=== PATIENT | male | born 1955 | race Caucasian/White ===

== ENCOUNTER 2018-10-25 20:35 | Inpatient (IN) ==
--- NOTE | 2018-10-25 20:41 | Emergency Department Note ---
Disposition Clinical Impression: Chest pain Qualifiers: Chest pain type: unspecified Qualified Code(s): R07.9 - Chest pain, unspecified Disposition: Admitted As Inpatient Condition: Fair [facility] Care Provider[facility] - Time of Disposition: 00:14 Chest Pain HPI - General Stated Complaint: Chest Pain Time Seen by Provider: 10/25/18 20:41 Source: patient, family Mode of arrival: ambulatory Limitations: no limitations Vital Signs Reviewed: Yes Nursing Notes Reviewed: Yes - History of Present Illness HPI Narrative: 63-year-old male no significant past medical history presenting for one day of severe midsternal chest pain which began approximately 12 AM last evening. Patient states that he has taken 3 oxycodone 500/fives since that time as well as nitroglycerin which have given him some relief of his pain. However patient states that very shortly after taken these medications his pain has returned and has been 10 out of 10 on the pain scale. Patient states that the pain has radiated from his midsternal region now covers the entire anterior aspect of his chest radiating into bilateral upper extremities neck and jaw. Patient notes that he feels that his teeth do not feel right, he notes that he is having num bness and paresthesias in the distal upper extremities, he noticed that he is lightheaded/dizzy as well as developing a severe headache. Patient denies radiation to his back, he has no lower extremity symptoms he does not have difficulty with ambulation he has had no falls or trauma or syncope. Patient denies abdominal pain nausea or vomiting, he has not had any fevers chills no abnormal bleeding, no other concerns or complaints at this time. Upon my initial evaluation, my general impression is that the patient appears uncomfortable due to his pain and is mildly dyspneic using accessory muscles of respiration with mild to moderate conversational dyspnea. He otherwise is awake, alert, oriented, engaged to conversation and answering questions appropriately. There are no overt lateralizing signs, the patient skin appears to be normal in color, they are not pale, not cyanotic, and not diaphoretic, they are sitting up in hospital bed interacting appropriately with environment. Pt complaint: chest pain Onset (ago): day(s) Duration: constant, gradually worsening Onset: during rest Pain Location: substernal Severity: severe Severity scale (1-10): 10 Quality: sharp Pain Radiation: RUE, LUE, neck, jaw/teeth Improves with: nitroglycerin, medication-other (Oxycodone) Associated symptoms: Reports: dyspnea Treatments prior to arrival chest pain: nitroglycerin, other (Oxycodone) - Related Data Home Medications Medication Instructions Recorded Confirmed Unable To Obtain [Unable to Obtain] 10/25/18 10/25/18 Allergies Allergy/AdvReac Type Severity Reaction Status Date / Time Penicillins Allergy See Verified 10/25/18 20:47 Comments Sulfa (Sulfonamide Allergy Headache Verified 10/25/18 20:49 Antibiotics) povidone-iodine AdvReac Rash Verified 10/25/18 20:49 [From Betadine] soap [From Betadine] AdvReac Rash Verified 10/25/18 20:49 tape AdvReac Rash Uncoded 10/25/18 20:49 Review of Systems: *See History of Present Illness for more detail Constitutional: Denies: fever, chills Cardiovascular: Admits: chest pain radiating into his bilateral upper extremities, neck/jaw and teeth Respiratory: Admits: dyspnea, denies: cough, hemoptysis Gastrointestinal: Denies: abdominal pain, nausea, vomiting, diarrhea, constipation, hematemesis, melena, hematochezia Genitourinary: Denies: hematuria Musculoskeletal: Admits to neck pain Denies: back pain, Neurological: Admits: headache, weakness, lightheadedness/dizziness, numbness, paresthesias, denies: difficulty with ambulation. Endocrine: Denies: fatigue All systems ED: reviewed and negative except as stated. Review of Systems: As Per HPI Physical Exam Constitutional: Patient appears to be in acute distress due to his pain he is otherwise [id number], engaged to conversation, speech is fluid, answers questions appropriately Neuro: GCS 15, no overt focal neurological deficits Head: Atraumatic, normocephalic Eyes: Pupils equal, round and reactive to light, no scleral icterus, no conjunctival injection Neck: Trachea midline without deviation. Anterior neck is supple without swelling. *Chest: Symmetric chest wall rise *Heart: Cardiac rate is tachycardic with a regular rhythm with S1 and S2 , no S3 or S4 appreciated, no murmurs, gallops, rubs, or clicks. *Lungs: Lungs are clear to auscultation bilaterally, there is accessory muscle use and prolonged expiratory phase. No wheezes, rhonchi or stridor appreciated. Abdomen: Abdomen is obese, soft to palpation, normal bowel sounds. No abdominal bruit auscultated. Non-distended, non-rigid, no organomegaly, no ascites appreciated. No pulsatile mass, no tenderness or guarding to palpation in all four quadrants, no rebound Extremities: Normal capillary refill without evidence of pedal edema, joint swelling or erythema. Pulses/motor intact in all 4 extremities. Psychiatric exam: Patient appears anxious Integumentary: warm, dry, intact, normal color. No rash, cyanosis, diaphoresis, erythema, or pallor - General Limitations: no limitations General appearance: alert, in distress Course Course Narrative: ED chest pain order set initiated with CTA dissection study ordered due to concerns of chest pain with neurological symptoms. Aspirin, nitroglycerin for the management of patient's symptoms. We will reassess frequently. My plan of care was discussed with patient and his bedside and they verbalized understanding and agreement with this plan. - Reevaluation(s) Reevaluation #1: A patient had elevated troponin at 0.38. We will perform repeat EKG at this time. Patient be heparinized after CT angiogram for cardiac prophylaxis. Patient required be admitted to hospitalist medicine service with cardiology consultation for further evaluation and management. Patient and his bedside verbalized their understanding and agreement with this plan. Time: 22:41 Vital Signs Temperature 97.9 F 10/25/18 20:49 Pulse Rate 79 10/25/18 20:49 Respiratory Rate 19 10/25/18 20:49 Blood Pressure 134/81 10/25/18 20:49 O2 Sat by Pulse Oximetry 98 10/25/18 20:49 Temperature 97.9 F 10/25/18 20:49 Pulse Rate 84 10/26/18 00:07 Respiratory Rate 18 10/26/18 00:07 Blood Pressure 128/76 10/26/18 00:07 O2 Sat by Pulse Oximetry 97 10/26/18 00:07 Oxygen Delivery Oxygen Delivery Room Air Chest Pain - MDM Narrative Medical decision making narrative: The patients CTA shows no sign of dissection or pulmonary embolism. Laboratory results are consistent for elevated troponin to 0.38. Heparinization was began in the ED. EKG has no acute ischemic change on initial or repeat evaluation. Otherwise negative workup. Evaluation results were discussed with the patient and their family member(s) at bedside. Patient was given time to ask questions and state concerns. The patient states that they have had significant relief of their symptoms with our management here in the ED. The patient will be admitted to the hospitalist medicine service for further evaluation and management of NSTEMI . The patient verbalizes their understanding and agreement with this plan and is hemodynamically stable at the time of admission. - Lab Data Lab results reviewed: Yes I reviewed the patient's lab results. Result diagrams: 10/25/18 20:55 10/25/18 20:55 Lab Results 10/25/18 10/25/18 10/25/18 Range/Units 20:55 20:55 20:55 WBC 8.9 (4.3-11.1) K/mcL RBC 5.49 (4.19-5.50) M/mcL Hgb 15.7 (12.9-16.9) g/dL Hct 47.7 (37.5-50.1) % MCV 86.9 (83.0-100.0) fL MCH 28.6 (28.0-33.3) pg MCHC 32.9 (31.6-35.5) g/dL RDW 13.8 (11.5-14.5) % Plt Count 297 (140-400) K/mcL MPV 9.7 (9.4-12.4) fL Immature Gran % 0.7 (0-4) % Seg Neutrophils % 52.9 % Lymphocytes % 33.7 % Monocytes % 9.8 % Eosinophils % 2.1 % Basophils % 0.8 % Neutrophils # 4.7 (1.6-8.9) K/mcL Lymphocytes # 3.0 (0.6-4.6) K/mcL Monocytes # 0.9 (0.0-1.3) K/mcL Eosinophils # 0.2 (0.0-0.6) K/mcL Basophils # 0.1 (0.0-0.2) K/mcL PT 11.2 (9.4-12.1) Seconds INR 1.0 APTT 47.5 H (26.0-36.0) Seconds Sodium 137 (136-145) mEq/L Potassium 3.9 (3.5-5.1) mEq/L Chloride 104 (98-107) mEq/L Carbon Dioxide 24 (23-29) mEq/L BUN 12 (8-23) mg/dL Creatinine 0.93 (0.70-1.30) mg/dL Est GFR ( Amer) > 60 (> 60) Est GFR (Non-Af Amer) > 60 (> 60) BUN/Creatinine Ratio 13 (6-26) Glucose 142 H (70-105) mg/dL Calculated Osmolality 286 (280-300) Calcium 9.6 (8.6-10.3) mg/dL Total Bilirubin 0.3 (0.3-1.0) mg/dL Direct Bilirubin 0.1 (0.0-0.2) mg/dL Indirect Bilirubin 0.2 (0.0-1.2) mg/dL AST 15 (13-39) Units/L ALT 15 (7-52) Units/L Alkaline Phosphatase 78 (34-104) Units/L Troponin I 0.38 H* (< 0.04) ng/mL Serum Total Protein 7.3 (6.4-8.9) g/dL Albumin 4.4 (3.5-5.7) g/dL Globulin 2.9 (2.4-3.5) g/dL Albumin/Globulin Ratio 1.5 (1.1-2.2) Lipase (11-82) Units/L 10/25/18 Range/Units 20:55 WBC (4.3-11.1) K/mcL RBC (4.19-5.50) M/mcL Hgb (12.9-16.9) g/dL Hct (37.5-50.1) % MCV (83.0-100.0) fL MCH (28.0-33.3) pg MCHC (31.6-35.5) g/dL RDW (11.5-14.5) % Plt Count (140-400) K/mcL MPV (9.4-12.4) fL Immature Gran % (0-4) % Seg Neutrophils % % Lymphocytes % % Monocytes % % Eosinophils % % Basophils % % Neutrophils # (1.6-8.9) K/mcL Lymphocytes # (0.6-4.6) K/mcL Monocytes # (0.0-1.3) K/mcL Eosinophils # (0.0-0.6) K/mcL Basophils # (0.0-0.2) K/mcL PT (9.4-12.1) Seconds INR APTT (26.0-36.0) Seconds Sodium (136-145) mEq/L Potassium (3.5-5.1) mEq/L Chloride (98-107) mEq/L Carbon Dioxide (23-29) mEq/L BUN (8-23) mg/dL Creatinine (0.70-1.30) mg/dL Est GFR ( Amer) (> 60) Est GFR (Non-Af Amer) (> 60) BUN/Creatinine Ratio (6-26) Glucose (70-105) mg/dL Calculated Osmolality (280-300) Calcium (8.6-10.3) mg/dL Total Bilirubin (0.3-1.0) mg/dL Direct Bilirubin (0.0-0.2) mg/dL Indirect Bilirubin (0.0-1.2) mg/dL AST (13-39) Units/L ALT (7-52) Units/L Alkaline Phosphatase (34-104) Units/L Troponin I (< 0.04) ng/mL Serum Total Protein (6.4-8.9) g/dL Albumin (3.5-5.7) g/dL Globulin (2.4-3.5) g/dL Albumin/Globulin Ratio (1.1-2.2) Lipase 63 (11-82) Units/L - Radiology Data Radiology results reviewed: Yes I reviewed the patient's radiology results. CT Dissection 10/25/18 20:51 IMPRESSION: 1. No aortic dissection or other acute abnormality in the chest, abdomen, or pelvis. 2. Mild coronary artery atherosclerotic vascular calcifications. 3. 2 mm nodule in the left lung apex. See recommendations below. 4. Diffuse hepatic steatosis. RECOMMENDATIONS: Fleischner Society guidelines for follow-up and management of incidentally detected pulmonary nodules: Single Solid Nodule: Nodule size less than 6 mm In a low-risk patient, no routine follow-up. In a high-risk patient, optional CT at 12 months. - Low risk patients include individuals with minimal or absent history of smoking and other known risk factors. - High risk patients include individuals with a history or smoking or known risk factors. Radiology 2017 http://pubs.rsna.org/doi/full/10.1148/radiol.[email or web address] D/ :09:40 / Ghassan Hahn MD / Ghassan Hahn MD Interpreting Provider: Ghassan Hahn MD - EKG Data EKG attestation: Yes I reviewed and interpreted this EKG. EKG results narrative: The patients EKG shows a sinus rhythm with a nonspecific intraventricular conduction delay at a rate of 83 beats per minute, CO interval of 188 milliseconds, a QRS duration of 113 milliseconds, a QT/QTc interval of 391 / 460 milliseconds respectively. There are no significant ST segment elevations, depressions, pathologic Q waves, abnormal T-wave inversions, nor any other signs of acute ischemic change. At this time there is no prior EKG available for comparison. Heart Score - Score History: Highly Suspicious EKG: Non Specific repolarisation Disturbance Age: 45-65 Risk Factors: 1-2 risk factors Troponin: Less than normal limit HEART Score Total: 5
[2018-10-25] MEDS ORDERED: Nitroglycerin 0.4 MG TAB.SUBL SL PRN (20:50)
[2018-10-25] MEDS ORDERED: Aspirin 81 MG TAB.CHEW PO ONE (20:50)
[2018-10-25] MEDS ORDERED: Isovue-370 500 ML BOTTLE IVP ONE (20:51)
[2018-10-25 21:38] LABS: Basophils # 0.1 K/mcL (0.0-0.2); Basophils % 0.8 %; Eosinophils # 0.2 K/mcL (0.0-0.6); Eosinophils % 2.1 %; Hematocrit 47.7 % (37.5-50.1); Hemoglobin 15.7 g/dL (12.9-16.9); Immature Granulocytes % 0.7 % (0-4); Lymphocytes % 33.7 %; Mean Corpuscular HGB Conc 32.9 g/dL (31.6-35.5); Mean Corpuscular Hemoglobin 28.6 pg (28.0-33.3); Mean Corpuscular Volume 86.9 fL (83.0-100.0); Mean Platelet Volume 9.7 fL (9.4-12.4); Monocytes # 0.9 K/mcL (0.0-1.3); Monocytes % 9.8 %; Neutrophils # 4.7 K/mcL (1.6-8.9); Platelet Count 297 K/mcL (140-400); Red Blood Count 5.49 M/mcL (4.19-5.50); Red Cell Distribution Width 13.8 % (11.5-14.5); Segmented Neutrophils % 52.9 %; White Blood Count 8.9 K/mcL (4.3-11.1)
[2018-10-25 21:45] LABS: Prothrombin Time 11.2 Seconds (9.4-12.1)
[2018-10-25 21:47] LABS: Activated Partial Thrombo Time 47.5 Seconds (26.0-36.0)
[2018-10-25 21:57] LABS: Alanine Aminotransferase 15 Units/L (7-52); Albumin 4.4 g/dL (3.5-5.7); Albumin/Globulin Ratio 1.5 (1.1-2.2); Alkaline Phosphatase 78 Units/L (34-104); Aspartate Amino Transferase 15 Units/L (13-39); BUN/Creatinine Ratio 13 (6-26); Bilirubin,Direct 0.1 mg/dL (0.0-0.2); Bilirubin,Indirect 0.2 mg/dL (0.0-1.2); Bilirubin,Total 0.3 mg/dL (0.3-1.0); Blood Urea Nitrogen 12 mg/dL (8-23); Calcium 9.6 mg/dL (8.6-10.3); Carbon Dioxide 24 mEq/L (23-29); Chloride 104 mEq/L (98-107); Globulin 2.9 g/dL (2.4-3.5); Glucose 142 mg/dL (70-105); Osmolality,Calculated 286 (280-300); Potassium 3.9 mEq/L (3.5-5.1); Sodium 137 mEq/L (136-145); Total Protein 7.3 g/dL (6.4-8.9); eGFR For African Americans > 60 (> 60); eGFR For Non-African Americans > 60 (> 60)
[2018-10-25 22:31] LABS: Troponin I 0.38 ng/mL (< 0.04)
--- NOTE | 2018-10-25 22:48 | Emergency Department Note ---
Disposition Clinical Impression: NSTEMI (non-ST elevated myocardial infarction) Chest pain Qualifiers: Chest pain type: unspecified Qualified Code(s): R07.9 - Chest pain, unspecified Disposition: Admitted As Inpatient Condition: Fair [facility] [Primary Care Provider[facility] - Time of Disposition: 00:05 General Adult HPI - General Chief complaint: ED Chest Pain Stated complaint: Chest Pain Time Seen by Provider: 10/25/18 20:41 Source: patient, family Mode of arrival: ambulatory Limitations: no limitations Nursing Notes Reviewed: Yes Vital Signs Reviewed: Yes - History of Present Illness Pain Scale: 4 - Related Data Home Medications Medication Instructions Recorded Confirmed Unable To Obtain [Unable to Obtain] 10/25/18 10/25/18 Allergies Allergy/AdvReac Type Severity Reaction Status Date / Time Penicillins Allergy See Verified 10/25/18 20:47 Comments Sulfa (Sulfonamide Allergy Headache Verified 10/25/18 20:49 Antibiotics) povidone-iodine AdvReac Rash Verified 10/25/18 20:49 [From Betadine] soap [From Betadine] AdvReac Rash Verified 10/25/18 20:49 tape AdvReac Rash Uncoded 10/25/18 20:49 Past Medical History - Past Medical History Medical history: Reports: GERD, hyperlipidemia Psychiatric history: Reports: panic disorder - Social History Smoking Status: Current every day smoker Alcohol use: Reports: none Drug use: Reports: none Physical Exam - General Limitations: no limitations General appearance: alert, in distress Course Vital Signs Temperature 97.9 F 10/25/18 20:49 Pulse Rate 79 10/25/18 20:49 Respiratory Rate 19 10/25/18 20:49 Blood Pressure 134/81 10/25/18 20:49 O2 Sat by Pulse Oximetry 98 10/25/18 20:49 Temperature 97.9 F 10/25/18 20:49 Pulse Rate 84 10/26/18 00:07 Respiratory Rate 18 10/26/18 00:07 Blood Pressure 128/76 10/26/18 00:07 O2 Sat by Pulse Oximetry 97 10/26/18 00:07 Oxygen Delivery Oxygen Delivery Room Air Medical Decision Making - Lab Data Lab results reviewed: Yes I reviewed the patient's lab results. Result diagrams: 10/25/18 20:55 10/25/18 20:55 Lab Results 10/25/18 10/25/1819 Range/Units 20:55 20:55 20:55 WBC 8.9 (4.3-11.1) K/mcL RBC 5.49 (4.19-5.50) M/mcL Hgb 15.7 (12.9-16.9) g/dL Hct 47.7 (37.5-50.1) % MCV 86.9 (83.0-100.0) fL MCH 28.6 (28.0-33.3) pg MCHC 32.9 (31.6-35.5) g/dL RDW 13.8 (11.5-14.5) % Plt Count 297 (140-400) K/mcL MPV 9.7 (9.4-12.4) fL Immature Gran % 0.7 (0-4) % Seg Neutrophils % 52.9 % Lymphocytes % 33.7 % Monocytes % 9.8 % Eosinophils % 2.1 % Basophils % 0.8 % Neutrophils # 4.7 (1.6-8.9) K/mcL Lymphocytes # 3.0 (0.6-4.6) K/mcL Monocytes # 0.9 (0.0-1.3) K/mcL Eosinophils # 0.2 (0.0-0.6) K/mcL Basophils # 0.1 (0.0-0.2) K/mcL PT 11.2 (9.4-12.1) Seconds INR 1.0 APTT 47.5 H (26.0-36.0) Seconds Sodium 137 (136-145) mEq/L Potassium 3.9 (3.5-5.1) mEq/L Chloride 104 (98-107) mEq/L Carbon Dioxide 24 (23-29) mEq/L BUN 12 (8-23) mg/dL Creatinine 0.93 (0.70-1.30) mg/dL Est GFR ( Amer) > 60 (> 60) Est GFR (Non-Af Amer) > 60 (> 60) BUN/Creatinine Ratio 13 (6-26) Glucose 142 H (70-105) mg/dL Calculated Osmolality 286 (280-300) Calcium 9.6 (8.6-10.3) mg/dL Total Bilirubin 0.3 (0.3-1.0) mg/dL Direct Bilirubin 0.1 (0.0-0.2) mg/dL Indirect Bilirubin 0.2 (0.0-1.2) mg/dL AST 15 (13-39) Units/L ALT 15 (7-52) Units/L Alkaline Phosphatase 78 (34-104) Units/L Troponin I 0.38 H* (< 0.04) ng/mL Serum Total Protein 7.3 (6.4-8.9) g/dL Albumin 4.4 (3.5-5.7) g/dL Globulin 2.9 (2.4-3.5) g/dL Albumin/Globulin Ratio 1.5 (1.1-2.2) Lipase (11-82) Units/L 10/25/18 Range/Units 20:55 WBC (4.3-11.1) K/mcL RBC (4.19-5.50) M/mcL Hgb (12.9-16.9) g/dL Hct (37.5-50.1) % MCV (83.0-100.0) fL MCH (28.0-33.3) pg MCHC (31.6-35.5) g/dL RDW (11.5-14.5) % Plt Count (140-400) K/mcL MPV (9.4-12.4) fL Immature Gran % (0-4) % Seg Neutrophils % % Lymphocytes % % Monocytes % % Eosinophils % % Basophils % % Neutrophils # (1.6-8.9) K/mcL Lymphocytes # (0.6-4.6) K/mcL Monocytes # (0.0-1.3) K/mcL Eosinophils # (0.0-0.6) K/mcL Basophils # (0.0-0.2) K/mcL PT (9.4-12.1) Seconds INR APTT (26.0-36.0) Seconds Sodium (136-145) mEq/L Potassium (3.5-5.1) mEq/L Chloride (98-107) mEq/L Carbon Dioxide (23-29) mEq/L BUN (8-23) mg/dL Creatinine (0.70-1.30) mg/dL Est GFR ( Amer) (> 60) Est GFR (Non-Af Amer) (> 60) BUN/Creatinine Ratio (6-26) Glucose (70-105) mg/dL Calculated Osmolality (280-300) Calcium (8.6-10.3) mg/dL Total Bilirubin (0.3-1.0) mg/dL Direct Bilirubin (0.0-0.2) mg/dL Indirect Bilirubin (0.0-1.2) mg/dL AST (13-39) Units/L ALT (7-52) Units/L Alkaline Phosphatase (34-104) Units/L Troponin I (< 0.04) ng/mL Serum Total Protein (6.4-8.9) g/dL Albumin (3.5-5.7) g/dL Globulin (2.4-3.5) g/dL Albumin/Globulin Ratio (1.1-2.2) Lipase 63 (11-82) Units/L - Radiology Data Radiology results reviewed: Yes I reviewed the patient's radiology results. - EKG Data EKG #1 EKG attestation: Yes I reviewed and interpreted this EKG. EKG results narrative: 20:46 EKG shows a normal sinus rhythm with ventricular rate of 83. No significant ST segment elevation or depression. No arrhythmia or ectopy. EKG #2 EKG attestation: Yes I reviewed and interpreted this EKG. EKG results narrative: 20:46 EKG shows a normal sinus rhythm with ventricular rate of 83. No significant ST segment elevation or depression. No arrhythmia or ectopy. Critical Care Time Critical Care Time: Yes Total Critical Care Time: 45 Attestation: Critical care performed: Time is exclusive of separately billable procedures. Time includes: direct patient care, patient reassessment, coordination of patient care, interpretation of data (laboratory data, radiology data, and respiratory data), review of patient's medical records, medical consultation and documentation of patient c are. Procedures included in critical care time: Procedures excluded from critical care time: Attestation Statement - Attestation Attestation: I, Fabian Blanca MD, personally evaluated this patient and discussed their management with the resident physician. I reviewed the resident's note and agree with the documented findings, medical decision making, and plan of care. I reviewed the residents documentation and agree with the residents assessment and plan of care. I have personally had face to face time with the patient. I personally supervised and was present for the rodriguez/critical portions of the following procedures completed by the resident: EKG interpretation. 63-year-old male presents to the emergency department with a complaint of severe substernal chest pain since midnight last night. He describes it as a pressure, like a 500 pound weight on his chest. He has had some shortness of breath. No diaphoresis directly associated with the pain but he states he has recently been having episodes of diaphoresis with exertion. He does have a history of coronary artery disease and had a balloon angioplasty in the past. No stents. No nausea or vomiting with the pain. It does radiate up into his neck and jaws as well as to the shoulders and upper arms bilaterally. On examination patient is a well-developed obese male in no acute distress. He is alert and oriented 3. There is no cyanosis or diaphoresis. Chest is nontender to palpation. Breath sounds are clear and equal bilaterally. Heart regular rate and rhythm. Abdomen soft and nontender with normal bowel sounds. Labs reviewed. Troponin 0.38. 20:46 EKG shows a normal sinus rhythm with ventricular rate of 83. No significant ST segment elevation or depression. No arrhythmia or ectopy. 22:4 5 repeat EKG shows a normal sinus rhythm with ventricular rate of 82. No significant ST segment elevation or depression. No arrhythmia or ectopy. No significant change from initial EKG. CTA dissection study showed no evidence of dissection or other acute abnormality in the chest abdomen or pelvis. It did show some coronary artery calcifications. Patient was started on heparin infusion for NSTEMI. The hospitalist,, Dr. Linares, was consulted and accepted admission of the [facility].
[2018-10-25] MEDS ORDERED: *HR* Heparin 5,000 UNIT/ML VIAL IVP ONE (23:39)
[2018-10-25] MEDS ORDERED: *HR* Heparin 5,000 UNIT/ML VIAL IVP PRN ×2 (23:39)
[2018-10-25] MEDS ORDERED: Heparin 25,000 UNIT/250 ML D5W 25,000 UNIT/250 ML IV.SOLN IVC SCH (23:45)
[2018-10-26] MEDS ORDERED: Mag Hydrox/Al Hydrox/Simeth 30 ML UDC PO PRN (01:24)
[2018-10-26] MEDS ORDERED: *HR* OxyCODONE Immed Rel 5 MG TABLET PO PRN (01:24)
[2018-10-26] MEDS ORDERED: traMADol 50 MG TABLET PO PRN (01:24)
[2018-10-26] MEDS ORDERED: Acetaminophen 325 MG TABLET PO PRN (01:24)
--- NOTE | 2018-10-26 01:26 | Internal Med History&Physical ---
Date of Encounter: 10/26/18 Time of Encounter: 01:25 Internal Medicine - H&P: HPI Chief complaint: Chest pain Admitted From: Home Plans for Post Hospital Care: Home History of present illness: Alvin Blanca is a 63-year-old man with coronary artery disease who says he has underwent 2 cardiac catheterizations in the past, the first one with balloon angioplasty performed and the second one with no intervention performed. He reports chronic shortness of breath with mild exertion and says that he has been having intermittent chest pains over the past number of weeks. One night ago he felt severe chest pain that awakened him from his sleep around 2 AM for which reason he took one tablet of oxycodone. It recurred about 3 hours later and he took another 2 tablets of oxycodone in addition to nitroglycerin. The day the chest pain was on and off with exertion and this evening it persisted and became more severe in intensity. He describes it as a 500 pound weight on his chest localizing it to the midsternal region accompanied by shortness of breath and nausea. He denies fever, chills or productive cough. In the ER he was found hemodynamically stable and EKG showed normal sinus rhythm. Blood work revealed a troponin of 0.387 he was started on heparin drip after receiving loading dose of aspirin. He currently rates his chest discomfort had a 2/10 and says he feels more comfortable. Vitals: Reviewed General: Well-developed obese white man lying comfortably in bed in no acute distress. Skin: Flushed, warm, dry. HEENT: Moist mucous membranes. No conjunctivae pallor. Neck: No lymphadenopathy. No JVD. No carotid bruits. No palpable thyroid. Chest: Normal thoracic expansion. Normal breath sounds. Clear to auscultation. Heart: Normal S1 & S2; rhythmic. No rubs or murmurs. Abdomen: Non-distended, soft and non-tender to palpation. No peritoneal reaction. Extremities: No clubbing, cyanosis or edema. No calf tenderness. Normal distal pulses. Neurological: Awake, alert and oriented to person, place and time. No focal deficits. Psych: Affect appropriate. Assessment/Plan 1. NSTEMI: As evidenced by the patients worsening unstable angina with an elevated troponin but no acute electrocardiographic signs of coronary ischemia. He has underlying CAD. Will continue monitoring him on telemetry, repeat EKG if chest pain recurs, trend troponins and keep NPO in the interim pending c ardiology evaluation as he may require cardiac catheterization. Start low dose aspirin, high intensity statin and beta juaquin. Get an echo and BNP to assess for ischemic cardiomyopathy given his increasing dyspnea with minimal exertion. 2. Obesity: Counseled and educated on therapeutic lifestyle changes for weight loss as it will be of benefit in controlling comorbidities. [employer] Biology Teacher evaluation advised. 3. Tobacco use disorder: 5 minutes were spent counseling and educating the patient on this habit. office services manager and resources were made available. 4. GERD: Antacids as needed. Past Med Surg Social Fam HX - Past Medical History Medical history: GERD, hyperlipidemia Psychiatric history: panic disorder - Social History Smoking Status: Current every day smoker Alcohol use: none Drug use: none Internal Medicine - H&P: Meds Unable To Obtain [Unable to Obtain] 10/25/18 [History] Allergy/AdvReac Type Severity Reaction Status Date / Time Penicillins Allergy See Verified 10/25/18 20:47 Comments Sulfa (Sulfonamide Allergy Headache Verified 10/25/18 20:49 Antibiotics) povidone-iodine AdvReac Rash Verified 10/25/18 20:49 [From Betadine] soap [From Betadine] AdvReac Rash Verified 10/25/18 20:49 tape AdvReac Rash Uncoded 10/25/18 20:49 All Systems PM: A 10-system review of systems was performed and is negative for pertinent findings except as documented above in the HPI. Family history reviewed and found non-contributory. - Constitutional Vitals: Temp Pulse Resp BP Pulse Ox 97.9 F 84 18 128/76 97 10/25/18 20:49 10/26/18 00:07 10/26/18 00:07 10/26/18 00:07 10/26/18 00:07 Exam: . Internal Med - H&P Results - Labs CBC & Chem 7: 10/25/18 20:55 10/25/18 20:55 Labs: Short CBC 10/25/18 Range/Units 20:55 WBC 8.9 (4.3-11.1) K/mcL Hgb 15.7 (12.9-16.9) g/dL Hct 47.7 (37.5-50.1) % Plt Count 297 (140-400) K/mcL Neutrophils # 4.7 (1.6-8.9) K/mcL BMP 10/25/18 20:55 Sodium 137 Potassium 3.9 Chloride 104 Carbon Dioxide 24 BUN 12 Creatinine 0.93 Glucose 142 H Calcium 9.6 Cardiac Enzymes 10/25/18 Range/Units 20:55 Troponin I 0.38 H* (< 0.04) ng/mL Liver Function 10/25/18 Range/Units 20:55 Total Bilirubin 0.3 (0.3-1.0) mg/dL Direct Bilirubin 0.1 (0.0-0.2) mg/dL AST 15 (13-39) Units/L ALT 15 (7-52) Units/L Alkaline Phosphatase 78 (34-104) Units/L Albumin 4.4 (3.5-5.7) g/dL - Impressions ITS Impressions CT Dissection 10/25/18 20:51 IMPRESSION: 1. No aortic dissection or other acute abnormality in the chest, abdomen, or pelvis. 2. Mild coronary artery atherosclerotic vascular calcifications. 3. 2 mm nodule in the left lung apex. See recommendations below. 4. Diffuse hepatic steatosis. RECOMMENDATIONS: Fleischner Society guidelines for follow-up and management of incidentally detected pulmonary nodules: Single Solid Nodule: Nodule size less than 6 mm In a low-risk patient, no routine follow-up. In a high-risk patient, optional CT at 12 months. - Low risk patients include individuals with minimal or absent history of smoking and other known risk factors. - High risk patients include individuals with a history or smoking or known risk factors. Radiology 2017 http://pubs.rsna.org/doi/full/10.1148/radiol.[email or web address] D/ / Ghassan Hahn MD / Ghassan Hahn MD Interpreting Provider: Ghassan Hahn MD - Time Spent With Patient Total time spent is greater than 50% in coordination of care (as documented) at patient's floor/unit and/or counseling patient:
[2018-10-26 05:31] LABS: Estimated Average Glucose 128 mg/dl
[2018-10-26 05:39] LABS: Chol/HDL Ratio 4.2 (0-4.9)
[2018-10-26 05:53] LABS: Thyroid Stimulating Hormone 1.104 mcIU/mL (0.340-5.600)
[2018-10-26] MEDS: Aspirin 81 MG TAB.CHEW PO SCH (07:48)
--- NOTE | 2018-10-26 08:44 | Cardiology Consult Note ---
<Marlyn Donaldson - Last Filed: 10/26/18 08:44> Date of Encounter: 10/26/18 Time of Encounter: 08:00 Assessment and Plan (1) NSTEMI (non-ST elevated myocardial infarction) Current Visit: Yes Status: Acute Patient presented with typical chest pain symptoms. Troponin 0.38-->2.23. No acute ischemic ECG changes present. Reports 2/10 neck/chest pressure upon exam. Continue heparin gtt per ACS protocol, asa, statin, and BB. TTE pending. Cardiac rehab. Recommend LHC with possible PCI; A/R/B discussed, he is agreeable to proceed. Further recommendations to follow. (2) Tobacco abuse Current Visit: Yes Status: Acute Smoking cessation counseling provided. Reports 1 ppd x40+ years. (3) CAD (coronary artery disease) Current Visit: Yes Status: Chronic Reports hx of LHC 6-8 years ago, reports PTCA only of 65% lesion. to bring in list of home medications. Asa, statin, and BB. Plan as above. Qualifiers: Coronary Disease-Associated Artery/Lesion type: [place] artery [place] vs. transplanted heart: [place] heart Associated angina: with unstable angina Qualified Code(s): I25.110 - Atherosclerotic heart disease of [place] coronary artery with unstable angina pectoris Discussion w patient/family: The assessment and plan as outlined above was discussed with the patient and/or family members who expressed understanding and agreement. All questions were answered. Thank you for involving us in the care of your patient. Please call with any questions. The patient will be discussed and reviewed with Dr. Orourke; changes to be made accordingly. History of Present Illness Consult date: 10/26/18 Requesting physician: Dakota Izaguirre Consult reason: NSTEMI Chief complaint: Chest pain History of present illness: Mr. Blanca is a 63 year old male with PMHx significant of HTN, CAD s/p prior PTCA, and tobacco use who presented to the ED with recurrent chest pain. He reports discomfort started x2 nights ago; discomfort described as pressure/heaviness "500 lb weight on my chest" that radiates across chest and into neck. Associated symptoms include dyspnea, fatigue, and diaphoresis that have been worsening over the past several months. He reports he recently underwent stress test at the NH 2 months ago, was reportedly normal. Describes x2 prior LHC, reports x2 65% blockages around 6-8 years ago (Hospital in [place], [place]), underwent balloon angioplasty of 1 blockage only. Upon exam, he describes 2/10 neck pressure. He is on a heparin gtt. Past Med Surg Social Fam HX - Past Medical History Attestation: Yes The following information was validated with the patient. Source: patient Medical history: coronary artery disease, GERD, hyperlipidemia Psychiatric history: panic disorder - Past Surgical History Surgical History: angioplasty/stent - Social History Smoking Status: Current every day smoker Packs per day: 1 Alcohol use: none Drug use: none - Family History Mother Living Status: Cause of : lung cancer Hx Family Cancer: Yes (lung) Sister Living Status: Cause of : unknown Father Living Status: Cause of : [place] Hx Family Cardiac Disorders: Yes (CAD, [place]) Medications and Allergies Albuterol Sulfate [Proair Hfa] 1 puff IH Q4H PRN 10/26/18 [History] Cholecalciferol (D-3) [Vitamin D] 1,000 unit PO DAILY 10/26/18 [History] Gemfibrozil 600 mg PO BID 10/26/18 [History] Lidocaine 1 appl TP 2XW PRN 10/26/18 [History] Metoprolol [Lopressor] 25 mg PO BID 10/26/18 [History] Nitroglycerin [Nitrostat] 0.4 mg SL Q5M PRN 10/26/18 [History] Omeprazole [PriLOSEC] 20 mg PO BID 10/26/18 [History] PARoxetine HCl [Paroxetine HCl] 20 mg PO DAILY 10/26/18 [History] Tiotropium [place] [Spiriva Respimat] 2 puff IH QAM 10/26/18 [History] buPROPion HCl [Zyban] 300 mg PO DAILY 10/26/18 [History] hydrOXYzine HCl [Hydroxyzine HCl] 25 mg PO HS 10/26/18 [History] Allergy/AdvReac Type Severity Reaction Status Date / Time Penicillins Allergy See Verified 10/25/18 20:47 Comments Sulfa (Sulfonamide Allergy Headache Verified 10/25/18 20:49 Antibiotics) povidone-iodine AdvReac Rash Verified 10/25/18 20:49 [From Betadine] soap [From Betadine] AdvReac Rash Verified 10/25/18 20:49 tape AdvReac Rash Uncoded 10/25/18 20:49 All Systems Review: The remainder of the systems were reviewed and are negative - Cardiovascular Cardiovascular: as per HPI Physical Examination Vital Signs, Last 4 Hours Temp Pulse Resp BP Pulse Ox 10/26/18 07:31 98.0 F 83 17 118/63 96 General: Conversant, No Apparent Distress HEENT: Atraumatic, Normocephaly, Mucus Membranes Moist Cardiac: Reg Rate and Rhythm, Normal S1 and S2 Lungs: Normal Breath Sounds Neuro: Alert and responsive Abdomen: Soft Skin: No rashes noted on visualized skin Musculoskeletal: No Chest Wall Tenderness Extremities: No Edema, Normal Pulses Results 10/25/18 20:55 10/25/18 20:55 Lab Results 10/25/18 10/25/18 10/25/18 20:55 20:55 20:55 WBC 8.9 Hgb 15.7 Hct 47.7 Plt Count 297 INR 1.0 APTT 47.5 H Sodium 137 Potassium 3.9 Chloride 104 Carbon Dioxide 24 BUN 12 Creatinine 0.93 Glucose 142 H Calcium 9.6 Total Bilirubin 0.3 AST 15 ALT 15 Alkaline Phosphatase 78 Troponin I 0.38 H* B-Natriuretic Peptide Lipase TSH 10/25/18 10/26/18 10/26/18 20:55 03:19 03:19 WBC Hgb Hct Plt Count INR APTT Sodium Potassium Chloride Carbon Dioxide BUN Creatinine Glucose Calcium Total Bilirubin AST ALT Alkaline Phosphatase Troponin I 2.23 H* B-Natriuretic Peptide 75 Lipase 63 TSH 10/26/18 03:19 WBC Hgb Hct Plt Count INR APTT Sodium Potassium Chloride Carbon Dioxide BUN Creatinine Glucose Calcium Total Bilirubin AST ALT Alkaline Phosphatase Troponin I B-Natriuretic Peptide Lipase TSH 1.104 Active Medications Acetaminophen (Tylenol) 650 mg PO Q6HR PRN PRN Reason: Mild Pain/Fever Stop: 04/27/19 01:25 Al Hydrox/Mg Hydrox/Simethicone (Maalox) 30 ml PO Q4H PRN; Protocol PRN Reason: Dyspepsia Stop: 04/27/19 01:25 Aspirin (Aspirin) 81 mg PO DAILY [facility] Stop: 04/27/19 09:01 Last Admin: 10/26/18 07:48 Dose: 81 mg Documented by: Atorvastatin Calcium (Lipitor) 40 mg PO HS [facility] Stop: 04/27/19 21:01 Heparin Sodium (Porcine) (Heparin) 4,000 unit IVP Q6HR PRN PRN Reason: SEE COMMENTS Stop: 04/26/19 23:40 Last Admin: 10/26/18 06:49 Dose: 4,000 unit Documented by: Heparin Sodium (Porcine) (Heparin) 2,000 unit IVP Q6H PRN PRN Reason: SEE COMMENTS Stop: 04/26/19 23:40 Heparin Sodium/Dextrose (Heparin 25,000 Unit/250 Ml D5w) 25,000 unit in 250 mls @ 9.716 mls/hr IVC .Q24H [facility]; Protocol Stop: 04/26/19 23:46 Last Titration: 10/26/18 06:48 Dose: 11.2 unit/kg/hr, 15.1 mls/hr Documented by: Metoprolol Tartrate (Lopressor) 25 mg PO BID [facility] Stop: 04/27/19 09:01 Last Admin: 10/26/18 07:48 Dose: 25 mg Documented by: Nitroglycerin (Nitroglycerin) 0.4 mg SL Q5MPRN PRN PRN Reason: Chest Pain Stop: 04/26/19 20:51 Last Admin: 10/25/18 22:37 Dose: 0.4 mg Documented by: Oxycodone HCl (Roxicodone) 10 mg PO Q6HR PRN PRN Reason: Severe Pain Stop: 04/27/19 01:25 Tramadol HCl (Ultram) 50 mg PO Q6HR PRN PRN Reason: Moderate Pain Stop: 04/27/19 01:25 - Imaging and Cardiology Echo: pending Other Results: 12 hour tele: avg HR=80 SR. No significant event noted. - EKG Interpretation EKG results cardiology: personally reviewed Consult Discharge Plan - Plan [facility]errals: [facility] [Primary Care Provider] - HAS-BLED Score - Score Medication usage predisposing to bleeding: Antiplatelet agents, NSAIDs, Anticoagulants Score: 1 <Darrell Orourke - Last Filed: 10/26/18 18:39> Date of Encounter: 10/26/18 - Attending Attestation Patient was seen and evaluated independently by me. Findings, assessment and plan were discussed at length with patient, questions answered. Agree with nurse practitioner's/resident's documentation. Addition as follows, 63yoCM ho CAD PTCA p/w stuttering chest pressure radiation to neck. ECG NS STT. Trop 2s. VSS, CTA B/L, RR, no LE edema. No EWELINA, no surgery plan. A: NSTEMI, type I likely CAD HTN P: LHC c/w heparin drip TTE Darrell Orourke MD, PhD Assessment and Plan Discussion w patient/family: The assessment and plan as outlined above was discussed with the patient and/or family members who expressed understanding and agreement. All questions were answered. Thank you for involving us in the care of your patient. Please call with any questions. History of Present Illness History of present illness: Mr. Blanca is a 63 year old male All Systems Review: The remainder of the systems were reviewed and are negative Physical Examination Vital Signs, Last 4 Hours Temp Pulse Resp BP Pulse Ox 10/26/18 16:44 98.5 F 89 18 145/80 94 Results 10/25/18 20:55 10/25/18 20:55 Lab Results 10/25/18 10/25/18 10/25/18 20:55 20:55 20:55 WBC 8.9 Hgb 15.7 Hct 47.7 Plt Count 297 INR 1.0 APTT 47.5 H Sodium 137 Potassium 3.9 Chloride 104 Carbon Dioxide 24 BUN 12 Creatinine 0.93 Glucose 142 H Calcium 9.6 Total Bilirubin 0.3 AST 15 ALT 15 Alkaline Phosphatase 78 Troponin I 0.38 H* B-Natriuretic Peptide Lipase TSH 10/25/18 10/26/18 10/26/18 20:55 03:19 03:19 WBC Hgb Hct Plt Count INR APTT Sodium Potassium Chloride Carbon Dioxide BUN Creatinine Glucose Calcium Total Bilirubin AST ALT Alkaline Phosphatase Troponin I 2.23 H* B-Natriuretic Peptide 75 Lipase 63 TSH 10/26/18 10/26/18 03:19 09:31 WBC Hgb Hct Plt Count INR APTT Sodium Potassium Chloride Carbon Dioxide BUN Creatinine Glucose Calcium Total Bilirubin AST ALT Alkaline Phosphatase Troponin I 3.99 H* B-Natriuretic Peptide Lipase TSH 1.104
[2018-10-26] MEDS ORDERED: 0.9 % Sodium Chloride 1,000 ML ONE ×2 (11:06→11:11)
[2018-10-26] MEDS ORDERED: *HR* Heparin 10,000 UNIT/10 ML VIAL ONE (11:07)
[2018-10-26] MEDS ORDERED: Nitroglycerin 1,000 MCG/10 ML VIAL IV ONE (11:07)
[2018-10-26] MEDS ORDERED: Heparin 1,000 UNITS/500 mL 500 ML ONE (11:07)
[2018-10-26] MEDS ORDERED: ISOVUE-370 200 ML INFUS..BTL ONE (11:07)
[2018-10-26] MEDS ORDERED: Verapamil 5 MG/2 ML VIAL ONE (11:11)
[2018-10-26] MEDS ORDERED: *HR* Midazolam HCl 2 MG/2 ML VIAL ONE (11:13)
[2018-10-26] MEDS ORDERED: *HR* FentaNYL (PF) 100 MCG/2 ML VIAL ONE (11:13)
[2018-10-26] MEDS ORDERED: methylPREDNISolone 125 MG/2 ML VIAL ONE (11:15)
--- NOTE | 2018-10-26 11:34 | Pre-Sedation Evaluation ---
Pre-sedation evaluation - Pre-sedation checklist Date of procedure: 10/26/18 Procedure: [facility] Recent Vitals: Last Vital Signs Temp 98.0 F 10/26/18 07:31 Pulse 83 10/26/18 07:31 Resp 17 10/26/18 07:31 BP 118/63 10/26/18 07:31 Pulse Ox 96 10/26/18 07:31 H&P (including ROS) documented in medical record: Yes Previous reaction to sedatives/anesthetics: No Dietary Status: NPO after Midnight Airway Assessment: Patient can open mouth completely, TMJ function normal ASA Classification *see protocol: CLASS II-Mild systemic disease Plan of Care: Pt appropriate candidate for procedure/moderate/conscious sedation, Risks/benefits of procedure/sedation discussed w/ patient/family Cardiac Registry (Cardio Only) - Functional Capacity Functional Capacity: >=4 METS with symptoms - Clincal Frailty Scale Clinical Frailty Scale: Managing Well
--- NOTE | 2018-10-26 12:28 | Invasive Diagnostic Lab Proc ---
Name: Alvin Blanca Date of Study: 10/26/2018 Date: 1955 Ht: 68.9in Medical Record#: [id number] Age: 63 Wt: 295.42lb Gender: Male BSA: 2.44 Order #: [id number] BMI: 43.76 Physicians Procedure Physician: Onel Rincon MD, FACC Referring MD: Referring MD: Staff Name Position Time In Terry Abdul RN Monitor 11:14 AM Keegan Ramos RN Senior Quality Assurance Engineer 11:14 AM Karen Madera RT (R) Scrub 11:14 AM Procedures Performed Procedure L HRT ARTERY/VENTRICLE ANGIO PRQ CARD JOSHUA STENT W/ANGIO 1 VSL Pre-Procedure Checklist Informed consent is complete signed and on chart. H&P is on chart. ID band is on and ID verified with patient. Patient NPO for procedure The procedure was described for the patient and questions were answered. Blood Pressure: 129/78 ECG is on chart. Rhythm: NSR Plan of Care Patient will tolerate the procedure without complications. Adequate level of comfort will be maintained. Hemodynamics will remain stable Patient will recover from procedure without complications. Respiratory function will be maintained. Cardiac rhythm will remain stable. Patient temperature will be maintained. Patient and/or family have verbalized understanding of the procedure. Patient Education Chief Complaint/Reason for Test: Cardiac Cath Developmental Category: Adult (18-64 years) Developmentally Appropriate for Age: Yes Learning Barriers: None Education Needs: Procedure Education Method: Verbal Information Taught: Cardiac Cath Educational Evaluation: Able to repeat information Intravenous Access Time IV Size Location DC'd Fluid/Drip Rate Units RN 20g 1 03/27" Patent On Arrival 0.9NaCl ml/hr Allergies Penicillins Sulfa (Sulfonamide Antibiotics) soap povidone-iodine tape Vital Signs Time BP (mmHg) HR (bpm) O2 Sat. RR (bpm) LOC 11:15 AM / % 5 = Fully awake and oriented or at pre-proc level 11:15 AM / % 5 = Fully awake and oriented or at pre-proc level 11:30 AM / % 4 = Oriented but drowsy 11:45 AM / % 4 = Oriented but drowsy 11:22 AM 136 / 87 70 97 % 15 11:27 AM 131 / 86 72 92 % 20 11:32 AM 131 / 84 70 94 % 20 11:37 AM 129 / 78 70 97 % 15 11:42 AM 116 / 78 74 94 % 19 11:46 AM 116 / 80 72 93 % 20 11:52 AM 110 / 75 72 94 % 20 11:56 AM 124 / 87 66 96 % 17 12:02 PM 141 / 85 70 97 % 24 12:07 PM 132 / 81 69 95 % 20 Procedural Medications Time Medication Dose Units Method Given By 11:21 AM Oxygen 2 L/min nasal cannula Keegan Ramos RN 11:22 AM Versed 2 mg Intravenous Keegan Ramos RN 11:22 AM Fentanyl 50 mcg Intravenous Keegan Ramos RN 11:22 AM Benadryl 50 mg Intravenous Keegan Ramos RN 11:22 AM Solu-medrol 125 mg Intravenous Keegan Ramos RN 11:37 AM Lidocaine 2% 0.5 ml Subcutaneous Onel Rincon MD, FACC 11:39 AM Heparin 1000 units Nitroglycerin 200 mcg Verapamil 2.5 mg Intraarterial Onel Rincon MD, FACC 12:08 PM Plavix 600 mg Orally Monica Zabala RN ASA Classification: CLASS II- Mild systemic disease (i.e. well-controlled diabetes, hypertension, asthma, cigarette smoking) Adolfo Score Preprocedure Postprocedure Activity 2- Moves 4 extremities sustained head lift Activity 2- Moves 4 extremities sustained head lift Circulation 2- SBP +/= 20 points of pre-anesthetic level Circulation 2- SBP +/= 20 points of pre-anesthetic level Consciousness 2- Awake and alert oriented x 3 Consciousness 2- Awake and alert oriented x 3 O2 Saturation 2- Able to maintain O2 satruation of 92% on room air O2 Saturation 2- Able to maintain O2 satruation of 92% on room air Respiratory 2- Able to deep breathe and cough well Respiratory 2- Able to deep breathe and cough well Total Score 10 Total Score 10 Contrast Agent: Isovue Diagnostic Contrast: 88 ml Total Contrast: 88 ml Fluoro Dose: 40 mGy Activated Clotting Time Time Seconds to Clot 12:02 PM 345 Procedure Log Time Note Enter By 11:14 AM 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 Informed consent was obtained. oparker 11:15 AM Time: :15 Patient comfortable and pain free: Yes oparker 11:15 AM Time: 11:15LOC: 5 = Fully awake and oriented or at pre-proc level oparker 11:21 AM Vitals capture started with the following parameters, Patient=Adult, Interval=5 min, Initial Susqyyid=772 mmHg, Deflation Rate=3 mmHg, Cuff placed on Right Arm 11: AM Procedure start :17 oparker : AM Time: : Oxygen on at 2 L/min per nasal cannula by Keegan Ramos RN oparlenard : AM Hair removed from procedure site in procedure lab using clippers. Right wrist and Right groin prepped with Chloraprep by Terry Abdul RN, then patient was draped. Skin intact. oparker : AM Time: : Versed 2 mg Intravenous Given by Keegan Ramos RN : AM Time: : Fentanyl 50 mcg Intravenous Given by Keegan Ramos RN : AM Time: : Benadryl 50 mg Intravenous Given by Keegan Ramos RN : AM Time: : Solu-medrol 125 mg Intravenous Given by Keegan Ramos RN 11: AM HR=70 bpm, UZFP=619/87 mmhg, SpO2=97.0 %, Resp=15 B/min, Comment=NSR : AM Recorded ECG: HR=71 Condition=Condition 1 11:25 AM ASA Class CLASS II- Mild systemic disease (i.e. well-controlled diabetes, hypertension, asthma, cigarette smoking) oparker 11:26 AM Pressure channel 1 zero failed. 11:26 AM Pressure channel 1 zeroed. 11:27 AM HR=72 bpm, FGEN=366/86 mmhg, SpO2=92.0 %, Resp=20 B/min, Comment=NSR 11:30 AM Time: 11:15LOC: 5 = Fully awake and oriented or at pre-proc level oparker 11:30 AM Time: 11:15 Patient comfortable and pain free: Yes oparker 11:32 AM HR=70 bpm, GXTH=483/84 mmhg, SpO2=94.0 %, Resp=20 B/min, Comment=NSR 11:37 AM HR=70 bpm, NTJK=875/78 mmhg, SpO2=97.0 %, Resp=15 B/min 11:37 AM Time out was performed according to hospital policy. Conscious sedation and anesthesia was achieved (see medication log with in this report above) oparker 11:38 AM Time: 11:37 .5 ml Lidocaine 2% to right radial Subcutaneous Given by Onel Rincon MD, [facility] oparker 11:38 AM Clinical Presentation: Non-STEMI oparker 11:38 AM Pressure channel 1 zeroed. 11:39 AM Access obtained by percutaneous puncture. 6Fr 10cm Terumo Colby sheath placed in right Radial artery. [id number] oparker 11:39 AM Time: 11:39 Patient given 1,000 units Heparin, 200 mcg Nitroglycerin, and 2.5 mg Verapamil Intraarterial by Onel Rincon MD, [facility]. This is given to reduce risk of vessel spasm and thrombosis. oparker 11:40 AM 5Fr TIG catheter inserted over the wire DNC oparker 11:40 AM wire removed oparker 11:42 AM HR=74 bpm, ENBK=568/78 mmhg, SpO2=94.0 %, Resp=19 B/min 11:42 AM Recorded Pressure: Ao, HR=74, Condition=Condition 1 (Aorta) Ao 108/77/92 11:43 AM RCA angiography performed in multiple views. oparker 11:43 AM TIG repositioned into LCA oparker 11:44 AM Catheter removed oparker 11:44 AM 5Fr FL 4 catheter inserted over the wire DNC oparker 11:45 AM Time: 11:30 Patient comfortable and pain free: Yes oparker 11:45 AM Time: 11:30LOC: 4 = Oriented but drowsy oparker 11:46 AM wire removed oparker 11:46 AM Pressure channel 1 zero failed. 11:46 AM HR=72 bpm, OHMH=087/80 mmhg, SpO2=93 %, Resp=20 B/min 11:46 AM Pressure channel 1 zero failed. 11:46 AM Pressure channel 1 zero failed. 11:47 AM Pressure channel 1 zeroed. 11:47 AM Recorded Pressure: LV, HR=73, Condition=Condition 1 (Left Ventricle) LV 131/16/29 11:47 AM catheter placed into LV pressures recorded oparker 11:47 AM Recorded Pressure: LV, Ao, HR=80, Condition=Condition 1 (Left Ventricle) LV 124/20/31, (Aorta) Ao 126/86/104 11:47 AM Recorded Pressure: Ao, HR=71, Condition=Condition 1 (Aorta) Ao 120/92/106 11:47 AM catheter placed in LCA oparker 11:48 AM LCA angiography performed in multiple views. oparker 11:49 AM Coronary Dominance: Left oparker 11:49 AM Proximal Left Anterior Descending Coronary Artery with 30% stenosis. If graft is supplying this territory, 0 % stenosis. oparker 11:49 AM Circumflex, Obtuse Marginal, Left Posterior Descending, and Left Posterolateral Coronary Arteries with 90 % stenosis. If graft is supplying this area, 0 % stenosis oparker 11:49 AM Lesion found in Proximal LAD. Pre Stenosis: 30 Pre CAREY Flow: oparker 11:49 AM Lesion found in 1st Marginal. Pre Stenosis: 90 Pre CAREY Flow: 3: Complete and Brisk Flow/Perfusion oparker 11:50 AM Catheter removed oparker 11:50 AM 6Fr CLS 3.5 Runway guide catheter was used to cannulate the PCI vessel successfully. reused? No oparker 11:50 AM wire removed oparker 11:52 AM HR=72 bpm, VTNF=954/75 mmhg, SpO2=94.0 %, Resp=20 B/min 11:54 AM Guide catheter removed intact. oparker 11:55 AM 6Fr EBU 3.0 Medtronic guide catheter was used to cannulate the PCI vessel successfully. reused? No oparker 11:55 AM wire removed oparker 11:56 AM HR=66 bpm, HLDT=525/87 mmhg, SpO2=96.0 %, Resp=17 B/min 11:57 AM Recorded Pressure: Ao, HR=71, Condition=Condition 1 (Aorta) Ao 158/102/125 11:57 AM .014 PT Graphix 182cm guide wire across target lesion- successful. reused? No oparker 11:58 AM ACT drawn oparker 11:59 AM 2.5 mm x 12 mm Emerge Monorail balloon across target lesion- successful. reused? No oparker 12:00 PM Time: 11:45LOC: 4 = Oriented but drowsy oparker 12:00 PM Time: 11:45 Patient comfortable and pain free: Yes oparker 12:01 PM Balloon inflated @ 8 abel for 22 seconds oparker 12:02 PM HR=70 bpm, WRGH=812/85 mmhg, SpO2=97.0 %, Resp=24 B/min 12:02 PM At 12:02 the ACT was 345 seconds. oparker 12:03 PM Balloon catheter removed intact. oparker 12:03 PM 2.75mm x 20mm Synergy drug-eluting stent across target lesion- successful Lot #[id number] oparker 12:06 PM Stent deployed @ 12 abel for 22 seconds oparker 12:06 PM wire removed oparker 12:07 PM HR=69 bpm, ZEGB=154/81 mmhg, SpO2=95.0 %, Resp=20 B/min 12:07 PM Stent delivery system removed intact. oparker 12:07 PM Guide catheter removed intact. oparker 12:08 PM Time: 12:08 Plavix 600 mg Orally Given by Monica Zabala RN oparker 12:09 PM Procedure completed at 12:09 10/26/2018 oparker 12:09 PM Did you address CAREY flow and Dominance? YesCoronary Dominance: Left oparker 12:10 PM Sign out completed: Radiation Dose 280.33 mGy, 39.7 Gy/cm2 Fluoro Time: 6.9 Isovue 370 - 200ml contrast 88 ml given by Onel Rincon MD, [facility]. Complications: None. 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 Sedation minutes 48. Cardiac Rehab Consult needed: Yes. Confirmed administered medications: Yes oparker 12:10 PM Isovue 370 - 200ml,1 Bottle(s) used. oparker 12:10 PM Arterial sheath pulled, Vasc Band closure device used and was Successful S/N. oparker 12:10 PM 12 ml air in Vasc Band. oparker 12:10 PM Estimated Blood Loss: minimal oparker 12:10 PM Post ECG NSR oparker 12:10 PM Post Blood Pressure 132/81 oparker 12:11 PM 12:11 Post Pulses Rt Radial 1+ oparker 12:11 PM Information taught Cardiac Cath, PCI, and Vasc Band oparker 12:11 PM Education needs Procedure, Plan of Care, and Responsibilities of Patient in Care oparker 12:11 PM Learning barriers :None oparker 12:11 PM Education Methods Verbal oparker 12:11 PM Education evaluation Able to repeat information oparker 12:11 PM Site status No bleeding/ No Hematoma - Rt Arm as reported by Cherise Byrnes RT (R) at 12:11 oparker 12:11 PM Vitals capture stopped. 12:11 PM Plavix, Effient or Brilinta given Yes oparker 12:11 PM Delay to floor No oparker 12:11 PM Patient out of room: 12:11 oparker 12:11 PM no family at this time oparker 12:12 PM Complications: None oparker 12:15 PM Time: 12:00 Patient comfortable and pain free: Yes oparker 12:19 PM Report given to Deborah KUO Pt taken to 2A Room #35. 12:19 oparker Complications Complication None None Hemodynamics Pressures Site Systolic/A Wave Diastolic/V Wave Mean AO 108 77 92 LV 131 16 29 LV 124 20 31 AO 126 86 104 AO 120 92 106 AO 158 102 125 Post Procedure Information Blood Pressure: 132/81 mmHg Rhythm: NSR Post procedural instructions were given Site Checks Time Location Status Staff Sheath In? Note 12:11 PM Rt Arm No bleeding/ No Hematoma Cherise Byrnes RT (R) Pulses Time Site Pre-Procedure Post-Procedure Note Bilateral DP & PT 1+ Bilateral radial 1+ 12:11:00 PM Rt Radial 1+ Updated by Terry Abdul RN on 10/26/2018 12:21:03 PM electronically signed on 10/26/2018 12:22:14 PM with status of Final
--- NOTE | 2018-10-26 14:58 | Electrocardiograph Report ---
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
--- NOTE | 2018-10-26 14:59 | Electrocardiograph Report ---
[place] [id number] Test Date: 2018-10-25 Pat Name: Alvin Blanca Department: [id number] Room: 2A Gender: M Patent Drafter: : 1955 Requested By: Dakota Gallagher Order Number: [id number] Reading MD: Vasu Herrera Measurements Intervals [place] Rate: 82 P: 49 DC: 172 QRS: 86 QRSD: 112 T: 61 QT: 395 QTc: 462 Interpretive Statements Sinus rhythm Borderline intraventricular conduction delay Electronically Signed On 10-26-2018 14:57:43 EDT by Vasu Herrera
[2018-10-26] MEDS ORDERED: Perflutren Lipid Microsphere 1.3 ML in 0.9 % Sodium Chloride 8.7 ML IVP ONE (15:00)
--- NOTE | 2018-10-26 16:30 | Event Note ---
Date of Encounter: 10/26/18 Time of Encounter: 10:00 H&P reviewed. Patient was examined today. He is being managed for NSTEMI today with heparin gtt, aspirin, lipitor and BB. Patient had lHC done today with 1 stent placed awaiting official report. Heparin drip DC'd and patient will continue on aspirin/Plavix, Lipitor and BB. Monitor CBC/BMP tomorrow. Heparin subcutaneous for DVT prophylaxis
[2018-10-26] MEDS: *HR* Heparin 5,000 UNIT/ML VIAL SQ SCH (18:22)
[2018-10-27] MEDS: *HR* Heparin 5,000 UNIT/ML VIAL SQ SCH (05:38)
[2018-10-27 05:39] LABS: Hematocrit 49.2 % (37.5-50.1); Hemoglobin 16.1 g/dL (12.9-16.9); Mean Corpuscular HGB Conc 32.7 g/dL (31.6-35.5); Mean Corpuscular Hemoglobin 28.8 pg (28.0-33.3); Mean Corpuscular Volume 87.9 fL (83.0-100.0); Mean Platelet Volume 9.3 fL (9.4-12.4); Platelet Count 306 K/mcL (140-400); Red Cell Distribution Width 13.7 % (11.5-14.5)
[2018-10-27 05:58] LABS: BUN/Creatinine Ratio 19 (6-26); Blood Urea Nitrogen 14 mg/dL (8-23); Calcium 9.8 mg/dL (8.6-10.3); Carbon Dioxide 22 mEq/L (23-29); Chloride 104 mEq/L (98-107); Glucose 169 mg/dL (70-105); Osmolality,Calculated 286 (280-300); Potassium 4.3 mEq/L (3.5-5.1); Sodium 136 mEq/L (136-145); eGFR For African Americans > 60 (> 60); eGFR For Non-African Americans > 60 (> 60)
[2018-10-27 07:25] VITALS: BP 145/86
[2018-10-27] MEDS: Aspirin 81 MG TAB.CHEW PO SCH (07:39)
--- NOTE | 2018-10-27 08:19 | Invasive Diagnostic Lab Proc ---
Name: Alvin Blanca Date of Study: 10/26/2018 Date: 1955 Ht: 68.9in Medical Record#: [id number] Age: 63 Wt: 295.42lb Gender: Male BSA: 2.44 Order #: [id number] BMI: 43.76 Physicians Procedure Physician: Vasu Herrera MD, FACC Referring MD: Referring MD: Staff Name Position Time In Terry Abdul RN Monitor 11:14 AM Keegan Ramos RN Platform Material Handler Manager 11:14 AM Karen Madera RT (R) Scrub 11:14 AM Procedures Performed Procedure L HRT ARTERY/VENTRICLE ANGIO PRQ CARD JOSHUA STENT W/ANGIO 1 VSL Pre-Procedure Checklist Informed consent is complete signed and on chart. H&P is on chart. ID band is on and ID verified with patient. Patient NPO for procedure The procedure was described for the patient and questions were answered. Blood Pressure: 129/78 ECG is on chart. Rhythm: NSR Plan of Care Patient will tolerate the procedure without complications. Adequate level of comfort will be maintained. Hemodynamics will remain stable Patient will recover from procedure without complications. Respiratory function will be maintained. Cardiac rhythm will remain stable. Patient temperature will be maintained. Patient and/or family have verbalized understanding of the procedure. Patient Education Chief Complaint/Reason for Test: Cardiac Cath Developmental Category: Adult (18-64 years) Developmentally Appropriate for Age: Yes Learning Barriers: None Education Needs: Procedure Education Method: Verbal Information Taught: Cardiac Cath Educational Evaluation: Able to repeat information Intravenous Access Time IV Size Location DC'd Fluid/Drip Rate Units RN 20g 1 /" Patent On Arrival 0.9NaCl ml/hr Allergies Penicillins Sulfa (Sulfonamide Antibiotics) soap povidone-iodine tape Vital Signs Time BP (mmHg) HR (bpm) O2 Sat. RR (bpm) LOC 11:15 AM / % 5 = Fully awake and oriented or at pre-proc level 11:15 AM / % 5 = Fully awake and oriented or at pre-proc level 11:30 AM / % 4 = Oriented but drowsy 11:45 AM / % 4 = Oriented but drowsy 11:22 AM 136 / 87 70 97 % 15 11:27 AM 131 / 86 72 92 % 20 11:32 AM 131 / 84 70 94 % 20 11:37 AM 129 / 78 70 97 % 15 11:42 AM 116 / 78 74 94 % 19 11:46 AM 116 / 80 72 93 % 20 11:52 AM 110 / 75 72 94 % 20 11:56 AM 124 / 87 66 96 % 17 12:02 PM 141 / 85 70 97 % 24 12:07 PM 132 / 81 69 95 % 20 Procedural Medications Time Medication Dose Units Method Given By 11:21 AM Oxygen 2 L/min nasal cannula Keegan Ramos RN 11:22 AM Versed 2 mg Intravenous Keegan Ramos RN 11:22 AM Fentanyl 50 mcg Intravenous Keegan Ramos RN 11:22 AM Benadryl 50 mg Intravenous Keegan Ramos RN 11:22 AM Solu-medrol 125 mg Intravenous Keegan Ramos RN 11:37 AM Lidocaine 2% 0.5 ml Subcutaneous Vasu Herrera MD 11:39 AM Heparin 1000 units Nitroglycerin 200 mcg Verapamil 2.5 mg Intraarterial Vasu Herrera MD 12:08 PM Plavix 600 mg Orally Monica Zabala RN ASA Classification: CLASS II- Mild systemic disease (i.e. well-controlled diabetes, hypertension, asthma, cigarette smoking) Adolfo Score Preprocedure Postprocedure Activity 2- Moves 4 extremities sustained head lift Activity 2- Moves 4 extremities sustained head lift Circulation 2- SBP +/= 20 points of pre-anesthetic level Circulation 2- SBP +/= 20 points of pre-anesthetic level Consciousness 2- Awake and alert oriented x 3 Consciousness 2- Awake and alert oriented x 3 O2 Saturation 2- Able to maintain O2 satruation of 92% on room air O2 Saturation 2- Able to maintain O2 satruation of 92% on room air Respiratory 2- Able to deep breathe and cough well Respiratory 2- Able to deep breathe and cough well Total Score 10 Total Score 10 Contrast Agent: Isovue Diagnostic Contrast: 88 ml Total Contrast: 88 ml Fluoro Dose: 40 mGy Activated Clotting Time Time Seconds to Clot 12:02 PM 345 Procedure Log Time Note Enter By 11:14 AM Pt arrived to bean sprout laborer 2 at 11:10 shanique 11:14 AM Terry Abdul RN Position: Monitor Time in: 11:14 shanique 11:14 AM Keegan Ramos RN Position: Platform Material Handler Manager Time in: 11:14 shanique 11:14 AM Karen Madera RT (R) Position: Scrub Time in: 11:14 oparker 11:14 AM Patient charges- Angio tray pack, Navilyst 3mm J, Pulse Oximetry and ACIST tubing and transducer oparker 11:14 AM Case Delayed oparker 11:14 AM Physician arrived : oparker 11:14 AM Meet and greet completed oparker 11:15 AM Sign in performed according to hospital policy. Informed consent was obtained. oparker 11:15 AM Time: 11:15 Patient comfortable and pain free: Yes oparker 11:15 AM Time: 11:15LOC: 5 = Fully awake and oriented or at pre-proc level oparker 11: AM Vitals capture started with the following parameters, Patient=Adult, Interval=5 min, Initial Wpzlylkf=292 mmHg, Deflation Rate=3 mmHg, Cuff placed on Right Arm 11: AM Procedure start : oparker : AM Time: Oxygen on at 2 L/min per nasal cannula by Keegan Ramos RN oparlenard : AM Hair removed from procedure site in procedure lab using clippers. Right wrist and Right groin prepped with Chloraprep by Terry Abdul RN, then patient was draped. Skin intact. oparker : AM Time: : Versed 2 mg Intravenous Given by Keegan Ramos RN : AM Time: : Fentanyl 50 mcg Intravenous Given by Keegan Ramos RN : AM Time: : Benadryl 50 mg Intravenous Given by Keegan Ramos RN : AM Time: : Solu-medrol 125 mg Intravenous Given by Keegan Ramos RN 11: AM HR=70 bpm, SIIP=812/87 mmhg, SpO2=97.0 %, Resp=15 B/min, Comment=NSR 11: AM Recorded ECG: HR=71 Condition=Condition 1 11:25 AM ASA Class CLASS II- Mild systemic disease (i.e. well-controlled diabetes, hypertension, asthma, cigarette smoking) oparker 11:26 AM Pressure channel 1 zero failed. 11:26 AM Pressure channel 1 zeroed. 11:27 AM HR=72 bpm, IWWM=728/86 mmhg, SpO2=92.0 %, Resp=20 B/min, Comment=NSR 11:30 AM Time: 11:15LOC: 5 = Fully awake and oriented or at pre-proc level oparker 11:30 AM Time: 11:15 Patient comfortable and pain free: Yes oparker 11:32 AM HR=70 bpm, UHZY=918/84 mmhg, SpO2=94.0 %, Resp=20 B/min, Comment=NSR 11:37 AM HR=70 bpm, KQBJ=908/78 mmhg, SpO2=97.0 %, Resp=15 B/min 11:37 AM Time out was performed according to hospital policy. Conscious sedation and anesthesia was achieved (see medication log with in this report above) oparker 11:38 AM Time: 11:37 .5 ml Lidocaine 2% to right radial Subcutaneous Given by Vasu Herrera MD, [facility] oparker 11:38 AM Clinical Presentation: Non-STEMI oparker 11:38 AM Pressure channel 1 zeroed. 11:39 AM Access obtained by percutaneous puncture. 6Fr 10cm Terumo [place] sheath placed in right Radial artery. [id number] oparker 11:39 AM Time: 11:39 Patient given 1,000 units Heparin, 200 mcg Nitroglycerin, and 2.5 mg Verapamil Intraarterial by Vasu Herrera MD, [facility]. This is given to reduce risk of vessel spasm and thrombosis. oparker 11:40 AM 5Fr TIG catheter inserted over the wire DNC oparker 11:40 AM wire removed oparker 11:42 AM HR=74 bpm, TZNN=538/78 mmhg, SpO2=94.0 %, Resp=19 B/min 11:42 AM Recorded Pressure: Ao, HR=74, Condition=Condition 1 (Aorta) Ao 108/77/92 11:43 AM RCA angiography performed in multiple views. oparker 11:43 AM TIG repositioned into LCA oparker 11:44 AM Catheter removed oparker 11:44 AM 5Fr FL 4 catheter inserted over the wire DNC oparker 11:45 AM Time: 11:30 Patient comfortable and pain free: Yes oparker 11:45 AM Time: 11:30LOC: 4 = Oriented but drowsy oparker 11:46 AM wire removed oparker 11:46 AM Pressure channel 1 zero failed. 11:46 AM HR=72 bpm, BVOG=219/80 mmhg, SpO2=93 %, Resp=20 B/min 11:46 AM Pressure channel 1 zero failed. 11:46 AM Pressure channel 1 zero failed. 11:47 AM Pressure channel 1 zeroed. 11:47 AM Recorded Pressure: LV, HR=73, Condition=Condition 1 (Left Ventricle) LV 131/16/29 11:47 AM catheter placed into LV pressures recorded oparker 11:47 AM Recorded Pressure: LV, Ao, HR=80, Condition=Condition 1 (Left Ventricle) LV 124/20/31, (Aorta) Ao 126/86/104 11:47 AM Recorded Pressure: Ao, HR=71, Condition=Condition 1 (Aorta) Ao 120/92/106 11:47 AM catheter placed in LCA oparker 11:48 AM LCA angiography performed in multiple views. oparker 11:49 AM Coronary Dominance: Left oparker 11:49 AM Proximal Left Anterior Descending Coronary Artery with 30% stenosis. If graft is supplying this territory, 0 % stenosis. oparker 11:49 AM Circumflex, Obtuse Marginal, Left Posterior Descending, and Left Posterolateral Coronary Arteries with 90 % stenosis. If graft is supplying this area, 0 % stenosis oparker 11:49 AM Lesion found in Proximal LAD. Pre Stenosis: 30 Pre CAREY Flow: oparker 11:49 AM Lesion found in 1st Marginal. Pre Stenosis: 90 Pre CAREY Flow: 3: Complete and Brisk Flow/Perfusion oparker 11:50 AM Catheter removed oparker 11:50 AM 6Fr CLS 3.5 Runway guide catheter was used to cannulate the PCI vessel successfully. reused? No oparker 11:50 AM wire removed oparker 11:52 AM HR=72 bpm, TGNZ=315/75 mmhg, SpO2=94.0 %, Resp=20 B/min 11:54 AM Guide catheter removed intact. oparker 11:55 AM 6Fr EBU 3.0 Medtronic guide catheter was used to cannulate the PCI vessel successfully. reused? No oparker 11:55 AM wire removed oparker 11:56 AM HR=66 bpm, AAMX=566/87 mmhg, SpO2=96.0 %, Resp=17 B/min 11:57 AM Recorded Pressure: Ao, HR=71, Condition=Condition 1 (Aorta) Ao 158/102/125 11:57 AM .014 PT Graphix 182cm guide wire across target lesion- successful. reused? No oparker 11:58 AM ACT drawn oparker 11:59 AM 2.5 mm x 12 mm Emerge Monorail balloon across target lesion- successful. reused? No oparker 12:00 PM Time: 11:45LOC: 4 = Oriented but drowsy oparker 12:00 PM Time: 11:45 Patient comfortable and pain free: Yes oparker 12:01 PM Balloon inflated @ 8 abel for 22 seconds oparker 12:02 PM HR=70 bpm, BVKF=365/85 mmhg, SpO2=97.0 %, Resp=24 B/min 12:02 PM At 12:02 the ACT was 345 seconds. oparker 12:03 PM Balloon catheter removed intact. oparker 12:03 PM 2.75mm x 20mm Synergy drug-eluting stent across target lesion- successful Lot #[id number] oparker 12:06 PM Stent deployed @ 12 abel for 22 seconds oparker 12:06 PM wire removed oparker 12:07 PM HR=69 bpm, GGFC=646/81 mmhg, SpO2=95.0 %, Resp=20 B/min 12:07 PM Stent delivery system removed intact. oparker 12:07 PM Guide catheter removed intact. oparker 12:08 PM Time: 12:08 Plavix 600 mg Orally Given by Monica Zabala RN oparker 12:09 PM Procedure completed at 12:09 10/26/2018 oparker 12:09 PM Did you address CAREY flow and Dominance? YesCoronary Dominance: Left oparker 12:10 PM Sign out completed: Radiation Dose 280.33 mGy, 39.7 Gy/cm2 Fluoro Time: 6.9 Isovue 370 - 200ml contrast 88 ml given by Onel Rincon MD, [facility]. Complications: None. The patient was discharged out of the crime lab technician in stable condition. Sedation minutes 48. Cardiac Rehab Consult needed: Yes. Confirmed administered medications: Yes oparker 12:10 PM Isovue 370 - 200ml,1 Bottle(s) used. oparker 12:10 PM Arterial sheath pulled, Vasc Band closure device used and was Successful S/N. oparker 12:10 PM 12 ml air in Vasc Band. oparker 12:10 PM Estimated Blood Loss: minimal oparker 12:10 PM Post ECG NSR oparker 12:10 PM Post Blood Pressure 132/81 oparker 12:11 PM 12:11 Post Pulses Rt Radial 1+ oparker 12:11 PM Information taught Cardiac Cath, PCI, and Vasc Band oparker 12:11 PM Education needs Procedure, Plan of Care, and Responsibilities of Patient in Care oparker 12:11 PM Learning barriers :None oparker 12:11 PM Education Methods Verbal oparker 12:11 PM Education evaluation Able to repeat information oparker 12:11 PM Site status No bleeding/ No Hematoma - Rt Arm as reported by Cherise Byrnes RT (R) at 12:11 oparker 12:11 PM Vitals capture stopped. 12:11 PM Plavix, Effient or Brilinta given Yes oparker 12:11 PM Delay to floor No oparker 12:11 PM Patient out of room: 12:11 oparker 12:11 PM no family at this time oparker 12:12 PM Complications: None oparker 12:15 PM Time: 12:00 Patient comfortable and pain free: Yes oparker 12:19 PM Report given to Deborah KUO Pt taken to 2A Room #35. 12:19 oparker Complications Complication None None Hemodynamics Pressures Site Systolic/A Wave Diastolic/V Wave Mean AO 108 77 92 LV 131 16 29 LV 124 20 31 AO 126 86 104 AO 120 92 106 AO 158 102 125 Post Procedure Information Blood Pressure: 132/81 mmHg Rhythm: NSR Post procedural instructions were given Site Checks Time Location Status Staff Sheath In? Note 12:11 PM Rt Arm No bleeding/ No Hematoma Cherise Byrnes RT (R) Pulses Time Site Pre-Procedure Post-Procedure Note Bilateral DP & PT 1+ Bilateral radial 1+ 12:11:00 PM Rt Radial 1+ Updated by Nubia Gan RT (R) on 10/27/2018 7:59:34 AM electronically signed on 10/27/2018 8:00:01 AM with status of Final
--- NOTE | 2018-10-27 08:52 | Cardiology Progress Note ---
Date of Encounter: 10/27/18 Time of Encounter: 08:20 Assessment and Plan (1) NSTEMI (non-ST elevated myocardial infarction) Current Visit: Yes Status: Acute Patient presented with typical chest pain symptoms. Troponin 0.38-->2.23. No acute ischemic ECG changes present. [facility] 10/26/18: s/p PCI to OM with JOSHUA--prelim findings reviewed with Dr. Herrera; full report pending. TTE: LVEF 60%, normal wall motion, no significant valvular dysfunction. Recommend DAPT (asa + plavix) uninterrupted for a minimum of 1 year; continue statin and BB. Cardiac rehab. Risk factor modification with smoking cessation, heart healthy diet, and daily exercise. No further inpt recommendations, Cardiology will sign-off. (2) Tobacco abuse Current Visit: Yes Status: Acute Smoking cessation counseling provided. Reports 1 ppd x40+ years. (3) CAD (coronary artery disease) Current Visit: Yes Status: Chronic Reports hx of [facility] 6-8 years ago, reports PTCA only of 65% lesion. to bring in list of home medications. Asa, statin, and BB. Plan as above. Qualifiers: Coronary Disease-Associated Artery/Lesion type: [place] artery [place] vs. transplanted heart: [place] heart Associated angina: with unstable angina Qualified Code(s): I25.110 - Atherosclerotic heart disease of [place] coronary artery with unstable angina pectoris Discussion w patient/family: The assessment and plan as outlined above was discussed with the patient and/or family members who expressed understanding and agreement. All questions were answered. Thank you for involving us in the care of your patient. Please call with any questions. The patient will be discussed and reviewed with Dr. Orourke; changes to be made accordingly. Subjective Principal diagnosis: NSTEMI Interval history: seen and examined. No new CV complaints overnight. No chest pain or discomfort. No issues with right radial cath site. Objective Vital Signs, Last 4 Hours Temp Pulse Resp BP Pulse Ox 10/27/18 07:24 97.5 F L 84 17 145/86 94 General: Conversant, No Apparent Distress HEENT: Atraumatic, Normocephaly, Mucus Membranes Moist Cardiac: Reg Rate and Rhythm, Normal S1 and S2 Lungs: Normal Breath Sounds Neuro: Alert and responsive Abdomen: Soft Skin: No rashes noted on visualized skin Musculoskeletal: No Chest Wall Tenderness Extremities: No Edema, Normal Pulses Other: right radial: no hematoma, oozing, or bleeding. +2 radial pulses. Results 10/27/18 05:19 10/27/18 05:19 Lab Results 10/26/18 10/27/18 10/27/18 09:31 05:19 05:19 WBC 14.0 H D Hgb 16.1 Hct 49.2 Plt Count 306 Sodium 136 Potassium 4.3 Chloride 104 Carbon Dioxide 22 L BUN 14 Creatinine 0.75 Glucose 169 H Calcium 9.8 Troponin I 3.99 H* Active Medications Acetaminophen (Tylenol) 650 mg PO Q6HR PRN PRN Reason: Mild Pain/Fever Stop: 04/27/19 01:25 Al Hydrox/Mg Hydrox/Simethicone (Maalox) 30 ml PO Q4H PRN; Protocol PRN Reason: Dyspepsia Stop: 04/27/19 01:25 Albuterol Sulfate (Proventil Inhaler) 1 puff IH Q4H PRN PRN Reason: Shortness Of Breath Stop: 04/28/19 08:10 Aspirin (Aspirin) 81 mg PO DAILY [facility] Stop: 04/27/19 09:01 Last Admin: 10/27/18 07:39 Dose: 81 mg Documented by: Atorvastatin Calcium (Lipitor) 40 mg PO HS [facility] Stop: 04/27/19 21:01 Last Admin: 10/26/18 20:37 Dose: 40 mg Documented by: Bupropion HCl (Wellbutrin Xl) 300 mg PO DAILY [facility] Stop: 04/28/19 09:01 Last Admin: 10/27/18 07:40 Dose: 300 mg Documented by: Clopidogrel Bisulfate (Plavix) 75 mg PO DAILY [facility] Stop: 04/28/19 09:01 Last Admin: 10/27/18 07:39 Dose: 75 mg Documented by: Heparin Sodium (Porcine) (Heparin) 5,000 unit SQ Q12HCO [facility]; Protocol Stop: 04/27/19 18:01 Last Admin: 10/27/18 05:38 Dose: 5,000 unit Documented by: Metoprolol Tartrate (Lopressor) 25 mg PO BID [facility] Stop: 04/27/19 09:01 Last Admin: 10/27/18 07:40 Dose: 25 mg Documented by: Nitroglycerin (Nitroglycerin) 0.4 mg SL Q5MPRN PRN PRN Reason: Chest Pain Stop: 04/26/19 20:51 Last Admin: 10/25/18 22:37 Dose: 0.4 mg Documented by: Non-Formulary Medication (Tiotropium [place] [Spiriva Respimat]) 2 puff IH QAM [facility] Stop: 04/28/19 09:01 Omeprazole (Prilosec) 20 mg PO BID [facility]; Protocol Stop: 04/28/19 09:01 Oxycodone HCl (Roxicodone) 10 mg PO Q6HR PRN PRN Reason: Severe Pain Stop: 04/27/19 01:25 Last Admin: 10/26/18 12:56 Dose: 10 mg Documented by: Paroxetine HCl (Paxil) 20 mg PO DAILY [facility]; Protocol Stop: 04/28/19 09:01 Last Admin: 10/27/18 07:40 Dose: 20 mg Documented by: Tramadol HCl (Ultram) 50 mg PO Q6HR PRN PRN Reason: Moderate Pain Stop: 04/27/19 01:25 Vitamin D (Vitamin D) 1,000 unit PO DAILY [facility] Stop: 04/28/19 09:01 - Imaging and Cardiology Echo: report reviewed Cardiac cath: report reviewed Other Results: 12 hour tele: avg HR=85 SR. No events noted. - EKG Interpretation EKG results cardiology: personally reviewed Consult Discharge Plan - Plan Referrals: [facility] [Primary Care Provider[facility] -
[2018-10-27] MEDS ORDERED: Cholecalciferol (D-3) 1,000 UNIT (25MCG) TABLET PO SCH (09:00)
[2018-10-27] MEDS ORDERED: NON-FORMULARY MEDICATION 1 EACH EACH (Tiotropium Bromide [Spiriva Respimat] 2 PUFF) IH SCH (09:00)
[2018-10-27] MEDS ORDERED: BuPROPion XL (24 HR) 150 MG TABLET PO SCH (09:00)
[2018-10-27] MEDS ORDERED: Tiotropium 18 MCG inhalation IH SCH (10:00)
--- NOTE | 2018-10-27 10:12 | Discharge Summary ---
- NOTES TO OUTPATIENT PROVIDER Notes to Outpatient Provider: Patient was admitted for chest pain and treated for NSTEMI. Had 1 stent deployed to OM. Had leukocytosis after the procedure however no signs of infection. Suspected due to stress. Will check CBC in 3 days. Need lifestyle modification including smoking cessation, weight loss. Has prediabetes so he may benefit from metformin for both weight and sugar control. Will require cardiac rehabilitation. Date of Encounter: 10/27/18 Time of Encounter: 10:00 - Discharge Diagnosis (1) Obesity, Class III, BMI 40-49.9 (morbid obesity) Priority: Secondary Status: Chronic (2) Prediabetes Priority: Secondary Status: Chronic (3) Chest pain Priority: Secondary Status: Resolved Qualifiers: Chest pain type: chest pain due to myocardial ischemia Ischemic chest pain type: unstable angina pectoris Qualified Code(s): I20.0 - Unstable angina (4) NSTEMI (non-ST elevated myocardial infarction) Priority: Primary Status: Resolved (5) Tobacco abuse Priority: Secondary Status: Acute (6) CAD (coronary artery disease) Priority: Secondary Status: Acute Qualifiers: Coronary Disease-Associated Artery/Lesion type: [place] artery [place] vs. transplanted heart: [place] heart Associated angina: with unstable angina Qualified Code(s): I25.110 - Atherosclerotic heart disease of [place] coronary artery with unstable angina pectoris Hospital course: Mr. Blanca is a 63 year old male with a history of morbid obesity, CAD status post angioplasty, and tobacco abuse who came into the hospital due to chest pain. His troponin peaked to 3.99, patient was treated initially with aspirin, Plavix and heparin drip. Cardiology service was consulted and patient had [facility] with JOSHUA stent placed in OM. Echocardiogram revealed preserved ejection fraction with normal findings. Patient was consulted extensively about lifestyle modification including weight loss and smoking cessation. He had leukocytosis after the left heart catheterization which could be stress related. He does not have any active signs or clinical findings of infection. He will check his CBC in 3 days and follow-up with his family doctor. Today, patient is clinically stable, asymptomatic. He will be discharged home in stable condition on DAPT therapy and follow with cardiology as outpatient. Discharge discussed with: patient - Time Spent with Patient Total time spent providing and/or coordinating discharge services: 45 MINUTES - Discharge Medications Prescriptions: New Aspirin 81 mg PO DAILY #90 tab.chew Atorvastatin [Lipitor] 40 mg PO HS #90 tablet Clopidogrel [Plavix] 75 mg PO DAILY #90 tablet Continued Albuterol Sulfate [Proair Hfa] 1 puff IH Q4H PRN PRN Reason: Shortness Of Breath buPROPion HCl [Zyban] 300 mg PO DAILY Cholecalciferol (D-3) [Vitamin D] 1,000 unit PO DAILY hydrOXYzine HCl [Hydroxyzine HCl] 25 mg PO HS Metoprolol [Lopressor] 25 mg PO BID Omeprazole [PriLOSEC] 20 mg PO BID PARoxetine HCl [Paroxetine HCl] 20 mg PO DAILY Lidocaine 1 appl TP 2XW PRN PRN Reason: Pain Tiotropium [place] [Spiriva Respimat] 2 puff IH QAM Nitroglycerin [Nitrostat] 0.4 mg SL Q5M PRN PRN Reason: Chest Pain Discontinued Gemfibrozil 600 mg PO BID Home Medications: Albuterol Sulfate [Proair Hfa] 1 puff IH Q4H PRN 10/26/18 [History] Cholecalciferol (D-3) [Vitamin D] 1,000 unit PO DAILY 10/26/18 [History] Lidocaine 1 appl TP 2XW PRN 10/26/18 [History] Metoprolol [Lopressor] 25 mg PO BID 10/26/18 [History] Nitroglycerin [Nitrostat] 0.4 mg SL Q5M PRN 10/26/18 [History] Omeprazole [PriLOSEC] 20 mg PO BID 10/26/18 [History] PARoxetine HCl [Paroxetine HCl] 20 mg PO DAILY 10/26/18 [History] Tiotropium [place] [Spiriva Respimat] 2 puff IH QAM 10/26/18 [History] buPROPion HCl [Zyban] 300 mg PO DAILY 10/26/18 [History] hydrOXYzine HCl [Hydroxyzine HCl] 25 mg PO HS 10/26/18 [History] Aspirin 81 mg PO DAILY #90 tab.chew 10/27/18 [Rx] Atorvastatin [Lipitor] 40 mg PO HS #90 tablet 10/27/18 [Rx] Clopidogrel [Plavix] 75 mg PO DAILY #90 tablet 10/27/18 [Rx] Allergies/Adverse Reactions: Allergy/AdvReac Type Severity Reaction Status Date / Time Penicillins Allergy See Verified 10/25/18 20:47 Comments Sulfa (Sulfonamide Allergy Headache Verified 10/25/18 20:49 Antibiotics) povidone-iodine AdvReac Rash Verified 10/25/18 20:49 [From Betadine] soap [From Betadine] AdvReac Rash Verified 10/25/18 20:49 tape AdvReac Rash Uncoded 10/25/18 20:49 Date of admission: 10/26/18 01:05 [facility] care physician: [facility] Consults: 10/25/18 22:43 Consult to Cardiology [CONS] Stat Comment: Consulting Provider: Cardiology [facility] Reason for Consult: NSTEMI Time Notified: 22:43 Call Completed: No 10/26/18 12:11 Consult to Cardiac Rehabilitation-Phase1 [CONS] Routine Comment: Reason for Consult: post op PCI Call Completed: Yes 10/26/18 17:19 Consult to Nutrition [CONS] Routine Comment: Consulting Provider: NUTRITION Reason for Dietary Consult: Other Other:: Cardiac diet options. - Constitutional Vitals: Temp Pulse Resp BP Pulse Ox 97.5 F L 84 17 145/86 94 10/27/18 07:24 10/27/18 07:24 10/27/18 07:24 10/27/18 07:24 10/27/18 07:24 Exam: .General: Patient is alert, oriented 3. Morbidly obese Head: Atraumatic, normal inspection, normocephalic. Eye: EOMI, PERRLA, no scleral icterus noted. ENT: Mucous membranes moist. No odontogenic infection noted. Neck: Normal inspection, no meningismus. Respiratory: No respiratory distress, rhonchi, or wheezes noted. Cardiovascular: Regular rate and regular rhythm, S1 and S2 audible. No murmurs, rubs, or gallops. GI: Soft, nondistended, normal bowel sounds. Extremities:No joint swelling, pedal edema, or tenderness noted. Left shoulder scar Neurological: Alert, oriented 3, no focal deficits. Psychiatric: normal affect, normal mood. Skin: Dry, intact, warm. Normal color. No rashes. - Patient Status Disposition: Home, Self-Care Condition: Good Functional capacity at discharge: independent ambulation Overall status at discharge: patient is back to baseline - Discharge Instructions Follow Up With: RACHELL,PCP [Primary Care Provider] - 11/03/18 11:00 am Forms: ED Satisfaction Letter - Diet and Activity Activity: resume usual activities as tolerated Diet: low salt diet
== END 2018-10-27 11:04 | disposition home or self-care (01) | DRG 247 ==
LOC: EMEROOARM 20:35 → 2ANU 20:35 → SUATTDRO 10-26 01:05 → 2ANU 10-26 01:30
PROVIDERS: ADMIT Internal Medicine; ATTEND Internal Medicine

== ENCOUNTER 2020-10-13 19:39 | Inpatient (IN) ==
[2020-10-13 21:18] LABS: Basophils % 0.2 %; Eosinophils % 0.1 %; Hematocrit 38.7 % (37.5-50.1); Hemoglobin 12.8 g/dL (12.9-16.9); Immature Granulocytes % 1.3 % (0-4); Lymphocytes # 0.3 K/mcL (0.6-4.6); Lymphocytes % 2.7 %; Mean Corpuscular HGB Conc 33.1 g/dL (31.6-35.5); Mean Corpuscular Hemoglobin 28.4 pg (28.0-33.3); Mean Corpuscular Volume 85.8 fL (83.0-100.0); Mean Platelet Volume 10.9 fL (9.4-12.4); Monocytes # 0.4 K/mcL (0.0-1.3); Neutrophils # 8.5 K/mcL (1.6-8.9); Nucleated Red Blood Cells 0.2 /100 WBC (0); Platelet Count 180 K/mcL (140-400); Red Blood Count 4.51 M/mcL (4.19-5.50); Red Cell Distribution Width 18.1 % (11.5-14.5); Segmented Neutrophils % 91.7 %; White Blood Count 9.2 K/mcL (4.3-11.1)
[2020-10-13 21:23] LABS: VBG HCO3 26 mEq/L (21-27); VBG PCO2 37 mmHg (41-51); VBG PH 7.45 pH Units (7.32-7.42); VBG PO2 142 mmHg (25-50)
[2020-10-13 21:24] LABS: Bilirubin,Urine Small (Negative); Blood,Urine Negative (Negative); Clarity,Urine Clear (Clear); Color,Urine Dark-Yellow (Yellow); Glucose,Urine (UA) Normal (Normal); Hyaline Casts,Urine Few per lpf (None Seen); Ketones,Urine Negative (Negative); Leukocyte Esterase,Urine Negative (Negative); Mucus,Urine Few per lpf (None-Few); Nitrite,Urine Negative (Negative); Protein,Urine 50 mg/dL (Neg-Trace); RBC,Urine 0-3 per hpf (0-3); Specific Gravity,Urine 1.027 (1.010-1.025); WBC,Urine 0-3 per hpf (0-3)
[2020-10-13 21:26] LABS: INR 1.4; Prothrombin Time 15.9 Seconds (9.4-12.1)
[2020-10-13 21:33] LABS: Amphetamine Screen,Urine Negative ng/mL (Cutoff=1000); Barbiturate Screen,Urine Negative ng/mL (Cutoff=200); Benzodiazepines Screen,Urine Negative ng/mL (Cutoff=200); Cannabinoid Screen,Urine Negative ng/mL (Cutoff = 50); Cocaine Screen,Urine Negative ng/mL (Cutoff= 300); Opiate Screen,Urine Positive ng/mL (Cutoff=300); Phencyclidine Screen,Urine Negative ng/mL (Cutoff=25)
[2020-10-13 21:40] LABS: Alanine Aminotransferase 172 Units/L (7-52); Albumin 3.3 g/dL (3.5-5.7); Alkaline Phosphatase 454 Units/L (34-104); Aspartate Amino Transferase 409 Units/L (13-39); BUN/Creatinine Ratio 34 (6-26); Bilirubin,Direct 4.3 mg/dL (0.0-0.2); Bilirubin,Indirect 2.2 mg/dL (0.0-1.0); Bilirubin,Total 6.5 mg/dL (0.3-1.0); Blood Urea Nitrogen 35 mg/dL (8-23); Calcium 8.9 mg/dL (8.6-10.3); Carbon Dioxide 23 mEq/L (23-29); Chloride 104 mEq/L (98-107); Ethanol < 10 mg/dL (Less than 10); Globulin 3.3 g/dL (2.4-3.5); Glucose 86 mg/dL (70-105); Osmolality,Calculated 297 (280-300); Potassium 5.1 mEq/L (3.5-5.1); Sodium 140 mEq/L (136-145); Total Protein 6.6 g/dL (6.4-8.9); Troponin I < 0.03 ng/mL (< 0.04); eGFR For African Americans > 60 (> 60); eGFR For Non-African Americans > 60 (> 60)
[2020-10-14] MEDS ORDERED: Ondansetron 4 MG/2 ML VIAL IVP PRN (01:14)
[2020-10-14] MEDS ORDERED: Naloxone 0.4 MG/ML INJ IVP PRN (01:14)
[2020-10-14] MEDS ORDERED: *HR* LORazepam 2 MG/ML VIAL IVP ONE (03:21)
[2020-10-14 03:25] LABS: Basophils % 0.1 %; Eosinophils % 0.1 %; Hematocrit 37.3 % (37.5-50.1); Hemoglobin 12.7 g/dL (12.9-16.9); Immature Granulocytes % 1.4 % (0-4); Lymphocytes # 0.3 K/mcL (0.6-4.6); Lymphocytes % 3.6 %; Mean Corpuscular Hemoglobin 28.5 pg (28.0-33.3); Mean Corpuscular Volume 83.8 fL (83.0-100.0); Mean Platelet Volume 10.7 fL (9.4-12.4); Monocytes # 0.6 K/mcL (0.0-1.3); Monocytes % 6.2 %; Neutrophils # 8.1 K/mcL (1.6-8.9); Nucleated Red Blood Cells 0.2 /100 WBC (0); Platelet Count 181 K/mcL (140-400); Red Blood Count 4.45 M/mcL (4.19-5.50); Red Cell Distribution Width 18.1 % (11.5-14.5); Segmented Neutrophils % 88.6 %; White Blood Count 9.2 K/mcL (4.3-11.1)
[2020-10-14 03:50] LABS: Alanine Aminotransferase 162 Units/L (7-52); Albumin 3.2 g/dL (3.5-5.7); Alkaline Phosphatase 426 Units/L (34-104); Aspartate Amino Transferase 406 Units/L (13-39); BUN/Creatinine Ratio 35 (6-26); Bilirubin,Total 6.8 mg/dL (0.3-1.0); Blood Urea Nitrogen 37 mg/dL (8-23); Calcium 8.5 mg/dL (8.6-10.3); Carbon Dioxide 23 mEq/L (23-29); Chloride 103 mEq/L (98-107); Globulin 3.1 g/dL (2.4-3.5); Glucose 73 mg/dL (70-105); Magnesium 2.4 mg/dL (1.6-2.6); Osmolality,Calculated 295 (280-300); Phosphorous 4.5 mg/dL (2.7-4.5); Potassium 4.7 mEq/L (3.5-5.1); Sodium 139 mEq/L (136-145); Total Protein 6.3 g/dL (6.4-8.9); eGFR For African Americans > 60 (> 60); eGFR For Non-African Americans > 60 (> 60)
[2020-10-14 03:51] LABS: Troponin I 0.03 ng/mL (< 0.04)
[2020-10-14] MEDS ORDERED: Haloperidol Lactate 5 MG/ML VIAL IVP ONE (04:32)
[2020-10-14] MEDS ORDERED: D5% in Water 1,000 ML IVC PRN (06:58)
[2020-10-14] MEDS ORDERED: *HR* Dextrose 50 % in Water (Vial) 50 ML VIAL IVP PRN (06:58)
[2020-10-14] MEDS ORDERED: Dextrose Gel 15 GM/37.5 ML TUBE PO PRN ×2 (06:58)
[2020-10-14] MEDS: Insulin LISPRO 300 UNITS/3 ML VIAL SUBQ SCH ×4 (09:31→21:16)
[2020-10-14] MEDS: Lactulose Oral Soln 20 GM/30 ML UDC PO SCH ×2 (10:36→21:05)
[2020-10-14] MEDS ORDERED: *HR* OxyCODONE Immed Rel 5 MG TABLET PO PRN (12:39)
[2020-10-14] MEDS: *HR* OxyCODONE Immed Rel 5 MG TABLET PO PRN ×2 (13:20→17:03)
[2020-10-14] MEDS ORDERED: Gadolinium Contrast Agent (WT Based) IV PRN (13:32)
[2020-10-14] MEDS ORDERED: GADOBUTROL 30 MMOL/30 ML VIAL IVP ONE (16:11)
[2020-10-14] MEDS ORDERED: *HR* Heparin 5,000 UNIT/ML VIAL SQ SCH (18:00)
[2020-10-14] MEDS: Melatonin 3 MG TABLET PO PRN (21:05)
[2020-10-15] MEDS: *HR* OxyCODONE Immed Rel 5 MG TABLET PO PRN ×4 (00:48→20:23)
[2020-10-15 00:49] LABS: Basophils % 0.2 %; Eosinophils # 0.1 K/mcL (0.0-0.6); Eosinophils % 1.2 %; Hemoglobin 13.4 g/dL (12.9-16.9); Immature Granulocytes % 1.6 % (0-4); Lymphocytes # 0.4 K/mcL (0.6-4.6); Lymphocytes % 4.2 %; Mean Corpuscular HGB Conc 34.4 g/dL (31.6-35.5); Mean Corpuscular Hemoglobin 28.9 pg (28.0-33.3); Mean Corpuscular Volume 84.2 fL (83.0-100.0); Mean Platelet Volume 10.7 fL (9.4-12.4); Monocytes # 0.6 K/mcL (0.0-1.3); Monocytes % 7.3 %; Neutrophils # 7.4 K/mcL (1.6-8.9); Nucleated Red Blood Cells 0.8 /100 WBC (0); Platelet Count 174 K/mcL (140-400); Red Blood Count 4.63 M/mcL (4.19-5.50); Red Cell Distribution Width 18.8 % (11.5-14.5); Segmented Neutrophils % 85.5 %; White Blood Count 8.6 K/mcL (4.3-11.1)
[2020-10-15 01:03] LABS: INR 1.4; Prothrombin Time 16.5 Seconds (9.4-12.1)
[2020-10-15 01:06] LABS: Alanine Aminotransferase 178 Units/L (7-52); Albumin 3.2 g/dL (3.5-5.7); Alkaline Phosphatase 477 Units/L (34-104); Aspartate Amino Transferase 438 Units/L (13-39); BUN/Creatinine Ratio 32 (6-26); Bilirubin,Direct 5.8 mg/dL (0.0-0.2); Bilirubin,Indirect 3.3 mg/dL (0.0-1.0); Bilirubin,Total 9.1 mg/dL (0.3-1.0); Blood Urea Nitrogen 36 mg/dL (8-23); Calcium 8.7 mg/dL (8.6-10.3); Carbon Dioxide 21 mEq/L (23-29); Chloride 104 mEq/L (98-107); Globulin 3.2 g/dL (2.4-3.5); Glucose 92 mg/dL (70-105); Magnesium 2.6 mg/dL (1.6-2.6); Osmolality,Calculated 294 (280-300); Potassium 4.5 mEq/L (3.5-5.1); Sodium 138 mEq/L (136-145); Total Protein 6.4 g/dL (6.4-8.9); eGFR For African Americans > 60 (> 60); eGFR For Non-African Americans > 60 (> 60)
[2020-10-15] MEDS: *HR* Enoxaparin 40 MG/0.4 ML SYRINGE SQ SCH (05:22)
[2020-10-15] MEDS: Insulin LISPRO 300 UNITS/3 ML VIAL SUBQ SCH ×3 (07:12→16:30)
[2020-10-15] MEDS: PARoxetine 20 MG TABLET PO SCH (09:48)
[2020-10-15] MEDS: Pyridoxine (B-6) 50 MG TABLET PO SCH (09:48)
[2020-10-15] MEDS: Lactulose Oral Soln 20 GM/30 ML UDC PO SCH (09:48)
[2020-10-15] MEDS: BuPROPion XL (24 HR) 150 MG TABLET PO SCH (09:48)
[2020-10-15] MEDS: Tiotropium 10 INH DOSE IH SCH (10:08)
[2020-10-15] MEDS: Melatonin 3 MG TABLET PO PRN (20:23)
[2020-10-15] MEDS ORDERED: 0.9 % Sodium Chloride 500 ML IVC ONE (21:04)
[2020-10-16] MEDS: Lactulose Oral Soln 20 GM/30 ML UDC PO SCH ×3 (02:00→21:54)
[2020-10-16] MEDS: Insulin LISPRO 300 UNITS/3 ML VIAL SUBQ SCH ×5 (02:01→21:54)
[2020-10-16] MEDS: *HR* OxyCODONE Immed Rel 5 MG TABLET PO PRN ×5 (03:03→21:55)
[2020-10-16] MEDS: *HR* Enoxaparin 40 MG/0.4 ML SYRINGE SQ SCH (05:06)
[2020-10-16 05:55] LABS: Basophils % 0.4 %; Eosinophils # 0.1 K/mcL (0.0-0.6); Eosinophils % 1.7 %; Hematocrit 38.5 % (37.5-50.1); Hemoglobin 13.3 g/dL (12.9-16.9); Immature Granulocytes % 1.5 % (0-4); Lymphocytes # 0.5 K/mcL (0.6-4.6); Lymphocytes % 5.9 %; Mean Corpuscular HGB Conc 34.5 g/dL (31.6-35.5); Mean Corpuscular Hemoglobin 28.7 pg (28.0-33.3); Mean Platelet Volume 11.7 fL (9.4-12.4); Monocytes # 0.6 K/mcL (0.0-1.3); Monocytes % 7.3 %; Neutrophils # 7.1 K/mcL (1.6-8.9); Nucleated Red Blood Cells 0.8 /100 WBC (0); Platelet Count 165 K/mcL (140-400); Red Blood Count 4.64 M/mcL (4.19-5.50); Red Cell Distribution Width 19.1 % (11.5-14.5); Segmented Neutrophils % 83.2 %; White Blood Count 8.5 K/mcL (4.3-11.1)
[2020-10-16 06:22] LABS: Alanine Aminotransferase 171 Units/L (7-52); Albumin 3.2 g/dL (3.5-5.7); Albumin/Globulin Ratio 1.1 (1.1-2.2); Alkaline Phosphatase 459 Units/L (34-104); Aspartate Amino Transferase 477 Units/L (13-39); BUN/Creatinine Ratio 31 (6-26); Bilirubin,Direct 7.4 mg/dL (0.0-0.2); Bilirubin,Indirect 3.4 mg/dL (0.0-1.0); Bilirubin,Total 10.8 mg/dL (0.3-1.0); Blood Urea Nitrogen 39 mg/dL (8-23); Calcium 8.5 mg/dL (8.6-10.3); Carbon Dioxide 20 mEq/L (23-29); Chloride 102 mEq/L (98-107); Globulin 2.9 g/dL (2.4-3.5); Glucose 74 mg/dL (70-105); Magnesium 2.7 mg/dL (1.6-2.6); Osmolality,Calculated 288 (280-300); Potassium 4.6 mEq/L (3.5-5.1); Sodium 135 mEq/L (136-145); Total Protein 6.1 g/dL (6.4-8.9); eGFR For African Americans > 60 (> 60); eGFR For Non-African Americans 57 (> 60)
[2020-10-16] MEDS: Tiotropium 10 INH DOSE IH SCH (07:52)
[2020-10-16] MEDS: PARoxetine 20 MG TABLET PO SCH (07:55)
[2020-10-16] MEDS: Pyridoxine (B-6) 50 MG TABLET PO SCH (07:55)
[2020-10-16] MEDS: BuPROPion XL (24 HR) 150 MG TABLET PO SCH (07:56)
[2020-10-17] MEDS: *HR* OxyCODONE Immed Rel 5 MG TABLET PO PRN (04:55)
[2020-10-17 05:25] LABS: Basophils % 0.3 %; Eosinophils # 0.1 K/mcL (0.0-0.6); Eosinophils % 0.8 %; Hematocrit 39.1 % (37.5-50.1); Immature Granulocytes % 1.6 % (0-4); Lymphocytes # 0.5 K/mcL (0.6-4.6); Lymphocytes % 5.1 %; Mean Corpuscular HGB Conc 33.2 g/dL (31.6-35.5); Mean Corpuscular Hemoglobin 28.1 pg (28.0-33.3); Mean Corpuscular Volume 84.4 fL (83.0-100.0); Mean Platelet Volume 10.7 fL (9.4-12.4); Monocytes # 0.7 K/mcL (0.0-1.3); Monocytes % 7.5 %; Neutrophils # 8.1 K/mcL (1.6-8.9); Nucleated Red Blood Cells 0.6 /100 WBC (0); Platelet Count 143 K/mcL (140-400); Red Blood Count 4.63 M/mcL (4.19-5.50); Segmented Neutrophils % 84.7 %; White Blood Count 9.6 K/mcL (4.3-11.1)
[2020-10-17 05:52] LABS: Alanine Aminotransferase 183 Units/L (7-52); Albumin 3.1 g/dL (3.5-5.7); Alkaline Phosphatase 504 Units/L (34-104); Aspartate Amino Transferase 571 Units/L (13-39); BUN/Creatinine Ratio 33 (6-26); Bilirubin,Direct 7.6 mg/dL (0.0-0.2); Bilirubin,Indirect 4.7 mg/dL (0.0-1.0); Bilirubin,Total 12.3 mg/dL (0.3-1.0); Blood Urea Nitrogen 40 mg/dL (8-23); Calcium 8.4 mg/dL (8.6-10.3); Carbon Dioxide 21 mEq/L (23-29); Chloride 102 mEq/L (98-107); Globulin 3.1 g/dL (2.4-3.5); Glucose 65 mg/dL (70-105); Osmolality,Calculated 288 (280-300); Potassium 4.6 mEq/L (3.5-5.1); Sodium 135 mEq/L (136-145); Total Protein 6.2 g/dL (6.4-8.9); eGFR For African Americans > 60 (> 60); eGFR For Non-African Americans 59 (> 60)
[2020-10-17] MEDS: Insulin LISPRO 300 UNITS/3 ML VIAL SUBQ SCH ×4 (07:19→21:19)
[2020-10-17] MEDS: Tiotropium 10 INH DOSE IH SCH (07:50)
[2020-10-17] MEDS: Lactulose Oral Soln 20 GM/30 ML UDC PO SCH ×2 (09:20→21:19)
[2020-10-17] MEDS: Pyridoxine (B-6) 50 MG TABLET PO SCH (09:20)
[2020-10-17] MEDS: BuPROPion XL (24 HR) 150 MG TABLET PO SCH (09:21)
[2020-10-17] MEDS: PARoxetine 20 MG TABLET PO SCH (09:21)
[2020-10-17] MEDS: Morphine Sulfate ER (12 HR) 15 MG TABLET.ER PO SCH ×2 (10:26→17:22)
[2020-10-18] MEDS: *HR* OxyCODONE Immed Rel 5 MG TABLET PO PRN (00:45)
[2020-10-18] MEDS: Melatonin 3 MG TABLET PO PRN (00:45)
[2020-10-18 04:45] LABS: Alanine Aminotransferase 191 Units/L (7-52); Albumin 3.1 g/dL (3.5-5.7); Alkaline Phosphatase 555 Units/L (34-104); Aspartate Amino Transferase 576 Units/L (13-39); BUN/Creatinine Ratio 29 (6-26); Bilirubin,Direct 8.7 mg/dL (0.0-0.2); Bilirubin,Indirect 4.6 mg/dL (0.0-1.0); Bilirubin,Total 13.3 mg/dL (0.3-1.0); Blood Urea Nitrogen 40 mg/dL (8-23); Calcium 8.6 mg/dL (8.6-10.3); Carbon Dioxide 19 mEq/L (23-29); Chloride 100 mEq/L (98-107); Globulin 3.2 g/dL (2.4-3.5); Glucose 69 mg/dL (70-105); Osmolality,Calculated 284 (280-300); Potassium 4.7 mEq/L (3.5-5.1); Sodium 133 mEq/L (136-145); Total Protein 6.3 g/dL (6.4-8.9); eGFR For African Americans > 60 (> 60); eGFR For Non-African Americans 52 (> 60)
[2020-10-18] MEDS: Morphine Sulfate ER (12 HR) 15 MG TABLET.ER PO SCH (05:22)
[2020-10-18 06:30] VITALS: BP 126/78; PULSE 103; TEMP 98
[2020-10-18] MEDS: BuPROPion XL (24 HR) 150 MG TABLET PO SCH (07:23)
[2020-10-18] MEDS: Lactulose Oral Soln 20 GM/30 ML UDC PO SCH (07:23)
[2020-10-18] MEDS: Pyridoxine (B-6) 50 MG TABLET PO SCH (07:23)
[2020-10-18] MEDS: PARoxetine 20 MG TABLET PO SCH (07:25)
[2020-10-18] MEDS: Insulin LISPRO 300 UNITS/3 ML VIAL SUBQ SCH (07:30)
[2020-10-18] MEDS: Tiotropium 10 INH DOSE IH SCH (07:34)
[2020-10-18 09:41] VITALS: O2SAT 97
== END 2020-10-18 13:14 | disposition hospice, home (50) | DRG 435 ==
LOC: EMEROOARM 19:39 → 3ANU 19:39
PROVIDERS: ADMIT Internal Medicine; ATTEND Internal Medicine